=== PATIENT | male | born 1975 | race Caucasian/White ===

== ENCOUNTER 2017-04-18 14:07 | Inpatient (IN) | payer BC, OTHER ==
[~2017-04-18] VITALS: Ht 177.8 cm; Wt 72.4 kg
[~2017-04-18 14:07] MED LIST: LEVE750T PO
[2017-04-18] MEDS ORDERED: SODIUM CHLORIDE 0.9% 1000ML 1,000 ML IV SCH (14:27)
[2017-04-18 14:50] LABS: BASO % 0.3 %; BASO ABS # 0.02 K/uL (0-0.2); COMPLETE YES; EOS % 2.3 %; HEMATOCRIT 46.6 % (42-52); IG% 0.2 %; LYMPH % 21.2 %; LYMPH ABS # 1.27 K/uL (1.2-3.4); MEAN CELL VOLUME 95.9 fL (80-100); MEAN CORPUSCULAR HEMOGLOBIN 32.9 pg (25-34); MEAN CORPUSCULAR HGB CONC 34.3 g/dl (32-36); MEAN PLATELET VOLUME 9.8 fL (7.4-10.4); MONO % 12.7 %; NEUT % 63.3 %; PLATELET COUNT 207 K/uL (130-400); RED BLOOD COUNT 4.86 M/uL (4.7-6.1)
[2017-04-18 14:59] LABS: PROTHROMBIN TIME (PATIENT) 10.7 SECONDS (9.0-12.0)
[2017-04-18 15:15] LABS: BLOOD UREA NITROGEN 10 mg/dl (7-18); BUN/CREATININE RATIO 10.9 (10-20); CALCIUM 9.3 mg/dl (8.5-10.1); CARBON DIOXIDE 28 mmol/L (21-32); CHLORIDE 103 mmol/L (98-107); CREATININE 0.92 mg/dl (0.60-1.40); GLUCOSE 129 mg/dl (70-99); POTASSIUM 3.5 mmol/L (3.5-5.1); SODIUM 139 mmol/L (136-145)
--- NOTE | 2017-04-18 15:32 | DIAGNOSTIC IMAGING REPORT ---
CT OF THE HEAD WITHOUT CONTRAST CLINICAL HISTORY: Stroke. Speech problems. COMPARISON STUDY: MRI of the brain May 22, 2013. CT DOSE: 700.35 mGycm TECHNIQUE: Helical axial images of the head were obtained without IV contrast. Automated exposure control was utilized for the study. A dose lowering technique was utilized adhering to the principles of ALARA. FINDINGS: The patient is status post right temporal craniotomy. A 5.5 x 5.2 cm CSF attenuation right temporal lobe abnormality is similar to exam of May 22, 2013. This contains several thin septations. No acute intracranial hemorrhage is present. Ventricular system is stable. Basilar cisterns are patent. There are no extra-axial fluid collections. There are no findings to suggest acute dural sinus thrombosis or acute territorial infarct. There are no significant calvarial abnormalities. There may be a mucous retention cyst within the left sphenoid sinus. Mastoid air cells are clear. IMPRESSION: 1. No acute intracranial findings. 2. No significant change in the right temporal lobe cystic lesion since MRI of May 22, 2013. Electronically signed by: Shaq Pierce M.D. 04/18/2017 3:30 PM Dictated Date/Time: 04/18/2017 3:25 PM
[2017-04-18] MEDS ORDERED: ONDANSETRON INJ 2 MG/ML 2 ML VIAL IV PRN (16:45)
[2017-04-18] MEDS ORDERED: POLYETHYLENE (MIRALAX) 17 GM PACK PO PRN (16:45)
[2017-04-18] MEDS ORDERED: PHARMACIST DISCHARGE MED REC CONSULT PRN (16:45)
[2017-04-18] MEDS ORDERED: ACETAMINOPHEN 325 MG TAB PO PRN (16:45)
[2017-04-18] MEDS ORDERED: ASPIRIN 325 MG ECTAB PO STA (16:58)
[2017-04-18] MEDS ORDERED: HOME MED ADMINISTRATION ONE (17:00)
--- NOTE | 2017-04-18 17:07 | History and Physical ---
History & Physical Date & Time of Service: Apr 18, 2017 at 16:58 Chief Complaint: Speech Problems Primary Care Physician: Dolly LAGUERRE M.D. History of Present Illness Source: patient, family, clinic records, hospital records Mr. Santamaria is a 41 yo M with h/o post-op stroke in 2006 who presents today with acute dysarthria that began suddenly yesterday when he woke up in the morning. 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 He then had one seizure 8 months post-op but since that time has remained seizure-free on Keppra at current dose. He denies any recent illnesses such as colds, diarrhea or UTI symptoms. He denies any headache, fevers, chills, neck stiffness, cough, sore throat, rash, nausea, vomiting, chest pain, shortness of breath, visual changes, changes in weakness in limbs or with gait. He denies any recent stressors, changes in meds or taking any OTC meds, and denies any trauma to his brain such as an MVA in recent months. His symptoms are specific to his expression and his comprehension is intact. He also denies any difficulties with swallowing. No new numbness or tingling, no vertigo and no lightheadedness. Past Medical/Surgical History Medical Problems: (1) Left-sided weakness Status: Chronic (2) Stroke Status: Resolved Surgical Problems: (1) Brain tumor (benign) Status: Resolved Family History Patient reports no known family medical history. Social History Smoking Status: Never Smoker Smokeless Tobacco Use: No Alcohol Use: none Drug Use: none Marital Status: single Housing status: lives alone Occupational Status: employed Immunizations History of Influenza Vaccine: No History of Tetanus Vaccine?: Yes Tetanus Immunization Date: May 07, 2016 History of Pneumococcal: No History of Hepatitis B Vaccine: No Multi-Drug Resistant Organisms History of MDRO: No Allergies Coded Allergies: No Known Allergies (Unverified , 05/22/13) Home Medications Scheduled Levetiracetam (Levetiracetam Er), 4 TAB PO HS Review of Systems At least ten systems were reviewed and negative except as indicated in HPI. Physical Exam Vital Signs Date Time Temp Pulse Resp B/P (MAP) Pulse Ox O2 Delivery O2 Flow Rate FiO2 04/18/17 15:32 73 04/18/17 15:29 70 18 123/94 96 04/18/17 14:35 97 Room Air 04/18/17 14:11 36.8 84 18 139/91 97 Room Air General Appearance: WD/WN, no apparent distress Head: normocephalic, atraumatic Eyes: normal inspection, PERRL, EOMI, sclerae normal ENT: normal ENT inspection, hearing grossly normal, pharynx normal Neck: supple, no adenopathy, no JVD Respiratory/Chest: lungs clear, normal breath sounds, no respiratory distress, no accessory muscle use Cardiovascular: regular rate, rhythm, no edema, no gallop, no JVD, no murmur, normal peripheral pulses Abdomen/GI: normal bowel sounds, non tender, soft Back: normal inspection Extremities/Musculoskelatal: normal inspection, + pertinent finding (chronic unchanged, L foot drop, L hemiparalysis with contracture of L arm, 5/5 strength in left leg. ) Neurologic/Psych: honey blender II-XII nml as tested, alert, normal mood/affect, + abnormal gait (chronic without any new changes. ), + pertinent finding ( hyperreflexic in L leg knee reflex, could no elicit S1 reflex. ) Skin: normal color, warm/dry, no rash Diagnostics Laboratory Results 04/18/17 14:30 Red Blood Count 4.86, Mean Corpuscular Volume 95.9, Mean Corpuscular Hemoglobin 32.9, Mean Corpuscular Hemoglobin Concent 34.3, Mean Platelet Volume 9.8, Neutrophils (%) (Auto) 63.3, Lymphocytes (%) (Auto) 21.2, Monocytes (%) (Auto) 12.7, Eosinophils (%) (Auto) 2.3, Basophils (%) (Auto) 0.3, Neutrophils # (Auto ) 3.80, Lymphocytes # (Auto) 1.27, Monocytes # (Auto) 0.76, Eosinophils # (Auto ) 0.14, Basophils # (Auto) 0.02 04/18/17 14:30 Test 04/18/17 14:30 04/18/17 14:32 9/18/17 16:50 White Blood Count 6.00 K/uL (4.8-10.8) Red Blood Count 4.86 M/uL (4.7-6.1) Hemoglobin 16.0 g/dL (14.0-18.0) Hematocrit 46.6 % (42-52) Mean Corpuscular Volume 95.9 fL (80-100) Mean Corpuscular Hemoglobin 32.9 pg (25-34) Mean Corpuscular Hemoglobin Concent 34.3 g/dl (32-36) Platelet Count 207 K/uL (130-400) Mean Platelet Volume 9.8 fL (7.4-10.4) Neutrophils (%) (Auto) 63.3 % Lymphocytes (%) (Auto) 21.2 % Monocytes (%) (Auto) 12.7 % Eosinophils (%) (Auto) 2.3 % Basophils (%) (Auto) 0.3 % Neutrophils # (Auto) 3.80 K/uL (1.4-6.5) Lymphocytes # (Auto) 1.27 K/uL (1.2-3.4) Monocytes # (Auto) 0.76 K/uL (0.11-0.59) Eosinophils # (Auto) 0.14 K/uL (0-0.5) Basophils # (Auto) 0.02 K/uL (0-0.2) RDW Standard Deviation 44.7 fL (36.4-46.3) RDW Coefficient of Variation 12.9 % (11.5-14.5) Immature Granulocyte % (Auto) 0.2 % Immature Granulocyte # (Auto) 0.01 K/uL (0.00-0.02) Prothrombin Time 10.7 SECONDS (9.0-12.0) Prothromb Time International Ratio 1.0 (0.9-1.1) Activated Partial Thromboplast Time 25.0 SECONDS (21.0-31.0) Partial Thromboplastin Ratio 1.0 Anion Gap 8.0 mmol/L (3-11) Est Creatinine Clear Calc Drug Dose 111.3 ml/min Estimated GFR () 121.0 Estimated GFR (Non- 104.4 BUN/Creatinine Ratio 10.9 (10-20) Calcium Level 9.3 mg/dl (8.5-10.1) Troponin I < 0.015 ng/ml (0-0.045) Bedside Glucose 125 mg/dl (70-99) Results Past 24 Hours Test 04/18/17 14:30 04/18/17 14:32 04/18/17 16:35 04/18/17 16:50 Range/Units White Blood Count 6.00 4.8-10.8 K/uL Red Blood Count 4.86 4.7-6.1 M/uL Hemoglobin 16.0 14.0-18.0 g/dL Hematocrit 46.6 42-52 % Mean Corpuscular Volume 95.9 80-100 fL Mean Corpuscular Hemoglobin 32.9 25-34 pg Mean Corpuscular Hemoglobin Concent 34.3 32-36 g/dl Platelet Count 207 130-400 K/uL Mean Platelet Volume 9.8 7.4-10.4 fL Neutrophils (%) (Auto) 63.3 % Lymphocytes (%) (Auto) 21.2 % Monocytes (%) (Auto) 12.7 % Eosinophils (%) (Auto) 2.3 % Basophils (%) (Auto) 0.3 % Neutrophils # (Auto) 3.80 1.4-6.5 K/uL Lymphocytes # (Auto) 1.27 1.2-3.4 K/uL Monocytes # (Auto) 0.76 0.11-0.59 K/uL Eosinophils # (Auto) 0.14 0-0.5 K/uL Basophils # (Auto) 0.02 0-0.2 K/uL RDW Standard Deviation 44.7 36.4-46.3 fL RDW Coefficient of Variation 12.9 11.5-14.5 % Immature Granulocyte % (Auto) 0.2 % Immature Granulocyte # (Auto) 0.01 0.00-0.02 K/uL Prothrombin Time 10.7 9.0-12.0 SECONDS Prothromb Time International Ratio 1.0 0.9-1.1 Activated Partial Thromboplast Time 25.0 21.0-31.0 SECONDS Partial Thromboplastin Ratio 1.0 Sodium Level 139 136-145 mmol/L Potassium Level 3.5 3.5-5.1 mmol/L Chloride Level 103 98-107 mmol/L Carbon Dioxide Level 28 21-32 mmol/L Anion Gap 8.0 3-11 mmol/L Blood Urea Nitrogen 10 7-18 mg/dl Creatinine 0.92 0.60-1.40 mg/dl Est Creatinine Clear Calc Drug Dose 111.3 ml/min Estimated GFR () 121.0 Estimated GFR (Non- 104.4 BUN/Creatinine Ratio 10.9 10-20 Random Glucose 129 70-99 mg/dl Calcium Level 9.3 8.5-10.1 mg/dl Troponin I < 0.015 0-0.045 ng/ml Bedside Glucose 125 70-99 mg/dl Diagnostic Radiology CT OF THE HEAD WITHOUT CONTRAST CLINICAL HISTORY: Stroke. Speech problems. COMPARISON STUDY: MRI of the brain May 22, 2013. CT DOSE: 700.35 mGycm TECHNIQUE: Helical axial images of the head were obtained without IV contrast. Automated exposure control was utilized for the study. A dose lowering technique was utilized adhering to the principles of ALARA. FINDINGS: The patient is status post right temporal craniotomy. A 5.5 x 5.2 cm CSF attenuation right temporal lobe abnormality is similar to exam of May 22, 2013. This contains several thin septations. No acute intracranial hemorrhage is present. Ventricular system is stable. Basilar cisterns are patent. There are no extra-axial fluid collections. There are no findings to suggest acute dural sinus thrombosis or acute territorial infarct. There are no significant calvarial abnormalities. There may be a mucous retention cyst within the left sphenoid sinus. Mastoid air cells are clear. IMPRESSION: 1. No acute intracranial findings. 2. No significant change in the right temporal lobe cystic lesion since MRI of May 22, 2013. Normal EKG Impression Assessment and Plan 41 yo M with acute onset dysarthria after waking up yesterday morning, has not resolved. Admitted for acute stroke workup. 1. Stroke-acute neuro deficit. Has h/o hemorrhagic stroke post-op in 2005 with subsequent L sided deficits as above. CT head was negative. Preliminary reading on the MRI shows poss R cerebellar stroke. Pt was given ASA and statin earlier this evening and will continue. Discussed the case with Neurology who agrees with plan. TTE with bubble study in am. Will likely need hypercoagulable workup because of age and low risk factors, however, will defer this to Neuro after evaluation. Cont telemetry monitoring overnight. 2. Seizure disorder-has remained seizure free since 2005. Cont Keppra. Level was ordered. DVT proph-Lovenox Full Code Dispo-uncertain at this time. [facility] Prophylaxis Given or contraindicated: Enoxaparin (Lovenox)SQ
[2017-04-18 18:59] VITALS: BP 132/86; PULSE 79; TEMP 37; O2SAT 96; Ht 177.8 cm; Wt 72.4 kg
--- NOTE | 2017-04-18 19:25 | EMERGENCY ROOM VISIT NOTE ---
History Report prepared by Nicole: Mike Soto Under the Supervision of: Dr. Nino Valladares M.D. First contact with patient: 14:18 Chief Complaint: STROKE SYMPTOMS Stated Complaint: SPEECH PROBLEMS History of Present Illness The patient is a 41 year old male who presents to the Emergency Room with complaints of speech trouble that began yesterday morning, 27 hours ago. The patient woke up yesterday at 0800 and felt slightly lightheaded. He went back to sleep, waking up 3 hours later. He then noticed that he began to have trouble articulating his words without slurring. He knows the words he wants to say and what people are saying to him, but he stumbles with over 5 or 6 words at a time. Per the patient's mother, this is abnormal for him and has never happened before. Ten years ago, the patient had a right sided benign brain tumor removed which resulted in a stoke that caused chronic left sided weakness. He denies any changes to his weakness, vision, or any numbness. He denies any current vertigo, dizziness, or trouble swallowing. He also denies any fever, headache, chest pain, shortness of breath, or abdominal pain. Source of History: patient Onset: 27 hours ago Position: other (Speech) Symptom Intensity: moderate Quality: other (Speech Trouble) Timing: constant Associated Symptoms: No fevers, No headache, No chest pain, No SOB, No abdominal pain, No weakness (No changes to his weakness), No numbness Note: He was lightheaded yesterday morning but is not currently. Review of Systems See HPI for pertinent positives & negatives. A total of 10 systems reviewed and were otherwise negative. Past Medical & Surgical Medical Problems: (1) Left-sided weakness (2) Stroke (3) Stroke Surgical Problems: (1) Brain tumor (benign) Family History Patient reports no known family medical history. Social History Smoking Status: Never Smoker Smokeless Tobacco Use: No Drug Use: none Housing Status: lives with family Occupation Status: employed Current/Historical Medications Scheduled Levetiracetam (Levetiracetam Er), 4 TAB PO HS Allergies Coded Allergies: No Known Allergies (Unverified , 05/22/13) Physical Exam Vital Signs Date Time Temp Pulse Resp B/P (MAP) Pulse Ox O2 Delivery O2 Flow Rate FiO2 04/18/17 15:32 73 04/18/17 15:29 70 18 123/94 96 04/18/17 14:35 97 Room Air 04/18/17 14:11 36.8 84 18 139/91 97 Room Air Physical Exam Constitutional: Vital signs reviewed. Eyes: Pupils are equal round reactive to light. Conjunctiva are noninjected. ENT: Pharynx is clear without erythema or exudate. Mucous membranes are moist. Neck supple without meningeal signs. Respiratory: Clear to auscultation bilaterally. Breath sounds are equal bilaterally. Cardiovascular: Regular rate and rhythm. No rubs or gallops. GI: Soft, nondistended and nontender. Bowel sounds are present. Musculoskeletal: No peripheral edema. Integumentary: No cyanosis. Neurological: The patient is awake and alert. Cranial nerves II-XII are intact , except for a mild left sided facial droop. 4/5 strength with contractures to the left arm. 5/5 strength in the right arm and lower extremities, with footdrop left leg. Sensation is intact to light touch all extremities. Slurred speech. Left pronator drift. Psychiatric: Normal affect. Medical Decision & Procedures ER Provider Diagnostic Interpretation: Radiology results as stated below per my review and the radiologist's interpretation: CT OF THE HEAD WITHOUT CONTRAST CLINICAL HISTORY: Stroke. Speech problems. COMPARISON STUDY: MRI of the brain May 22, 2013. CT DOSE: 700.35 mGycm TECHNIQUE: Helical axial images of the head were obtained without IV contrast. Automated exposure control was utilized for the study. A dose lowering technique was utilized adhering to the principles of ALARA. FINDINGS: The patient is status post right temporal craniotomy. A 5.5 x 5.2 cm CSF attenuation right temporal lobe abnormality is similar to exam of May 22, 2013. This contains several thin septations. No acute intracranial hemorrhage is present. Ventricular system is stable. Basilar cisterns are patent. There are no extra-axial fluid collections. There are no findings to suggest acute dural sinus thrombosis or acute territorial infarct. There are no significant calvarial abnormalities. There may be a mucous retention cyst within the left sphenoid sinus. Mastoid air cells are clear. IMPRESSION: 1. No acute intracranial findings. 2. No significant change in the right temporal lobe cystic lesion since MRI of May 22, 2013. Electronically signed by: Shaq Pierce M.D. 04/18/2017 3:30 PM Dictated Date/Time: 04/18/2017 3:25 PM Laboratory Results 04/18/17 14:30 Red Blood Count 4.86, Mean Corpuscular Volume 95.9, Mean Corpuscular Hemoglobin 32.9, Mean Corpuscular Hemoglobin Concent 34.3, Mean Platelet Volume 9.8, Neutrophils (%) (Auto) 63.3, Lymphocytes (%) (Auto) 21.2, Monocytes (%) (Auto) 12.7, Eosinophils (%) (Auto) 2.3, Basophils (%) (Auto) 0.3, Neutrophils # (Auto ) 3.80, Lymphocytes # (Auto) 1.27, Monocytes # (Auto) 0.76, Eosinophils # (Auto ) 0.14, Basophils # (Auto) 0.02 04/18/17 14:30 Test 04/18/17 14:30 04/18/17 14:32 White Blood Count 6.00 K/uL (4.8-10.8) Red Blood Count 4.86 M/uL (4.7-6.1) Hemoglobin 16.0 g/dL (14.0-18.0) Hematocrit 46.6 % (42-52) Mean Corpuscular Volume 95.9 fL (80-100) Mean Corpuscular Hemoglobin 32.9 pg (25-34) Mean Corpuscular Hemoglobin Concent 34.3 g/dl (32-36) Platelet Count 207 K/uL (130-400) Mean Platelet Volume 9.8 fL (7.4-10.4) Neutrophils (%) (Auto) 63.3 % Lymphocytes (%) (Auto) 21.2 % Monocytes (%) (Auto) 12.7 % Eosinophils (%) (Auto) 2.3 % Basophils (%) (Auto) 0.3 % Neutrophils # (Auto) 3.80 K/uL (1.4-6.5) Lymphocytes # (Auto) 1.27 K/uL (1.2-3.4) Monocytes # (Auto) 0.76 K/uL (0.11-0.59) Eosinophils # (Auto) 0.14 K/uL (0-0.5) Basophils # (Auto) 0.02 K/uL (0-0.2) RDW Standard Deviation 44.7 fL (36.4-46.3) RDW Coefficient of Variation 12.9 % (11.5-14.5) Immature Granulocyte % (Auto) 0.2 % Immature Granulocyte # (Auto) 0.01 K/uL (0.00-0.02) Prothrombin Time 10.7 SECONDS (9.0-12.0) Prothromb Time International Ratio 1.0 (0.9-1.1) Activated Partial Thromboplast Time 25.0 SECONDS (21.0-31.0) Partial Thromboplastin Ratio 1.0 Anion Gap 8.0 mmol/L (3-11) Est Creatinine Clear Calc Drug Dose 111.3 ml/min Estimated GFR () 121.0 Estimated GFR (Non- 104.4 BUN/Creatinine Ratio 10.9 (10-20) Calcium Level 9.3 mg/dl (8.5-10.1) Troponin I < 0.015 ng/ml (0-0.045) Bedside Glucose 125 mg/dl (70-99) Laboratory results as reviewed by me. Medications Administered Medications (Trade) Dose Ordered Sig/Foreign Route Start Time Stop Time Status Last Admin Dose Admin Sodium Chloride 1,000 ml @ 50 mls/hr Q20H IV 04/18/17 14:27 04/18/17 16:58 DC 04/18/17 15:29 50 MLS/HR Aspirin (Ecotrin Tab) 325 mg NOW STAT PO 04/18/17 16:58 04/18/17 16:59 DC 04/18/17 17:01 325 MG ECG Indication: other (Stroke Symptoms) Rate (beats per minute): 80 Rhythm: normal sinus Findings: no acute ischemic change, no ectopy ED Course 1418: The patient was evaluated in room B7. A complete history and physical exam was performed. 1427: Sodium Chloride 1000 ml @ 50 mls/hr IV 1554: After reevaluation, the patient has persistent dysarthria. We discussed his test results. I will be calling a [facility] Hospitalist. 1604: [facility] discussed the patient's case. She will be evaluating the patient for further management and care. Medical Decision This is a 41-year-old male who presents with dysarthria. Differential diagnosis includes CVA, TIA, metabolic derangement, intracranial hemorrhage, intracranial mass. I did perform a limited focused review of portions of the patient's old chart on the electronic medical record. The patient received a MRI of his brain in 2012 which showed a right temporal lobe cystic lesion. I did evaluate the patient as noted above. The patient has a history of prior stroke after a tumor removal. He is presenting with dysarthria starting yesterday. According to his mother's seems to be worsening today. He is otherwise neurologically intact other than his chronic deficits. IV access was established. The patient was placed on a continuous stakes player. I did order and personally review the patient's 12-lead EKG as described above. I did order and review the patient's blood work as noted in the electronic medical record. I did order a CT of the head. I did review the images myself as well as the radiology report as described above. There is no evidence of acute intracranial process. I did reassess the patient. He has persistent dysarthria. At this time I did recommend hospitalization for further workup of his symptoms including MRI of the brain. I did discuss case with the hospitalist and block and case maker. Medication Reconcilliation Current Medication List: was personally reviewed by me Blood Pressure Screening Patient's blood pressure: Elevated blood pressure Blood pressure disposition: Referred to PCP Consults Time Called: 1600 Consulting Physician: Sandra IBANEZ - [facility] Returned Call: 1604 I [facility] We discussed the patient and his results. The patient will be further evaluated by her. Impression Primary Impression: Dysarthria Scribe Attestation The scribe's documentation has been prepared under my direct and personally reviewed by me in its entirety. I confirm that the note above accurately reflects all work, treatment, procedures, and medical decision making performed by me. Stroke History Time Last Known Well 27 hours ago Stroke t-PA Criteria Reviewed Does NOT meet criteria for t-PA Reason t-PA Not Given Contraindicated (Due to time frame) Departure Information Dispostion Being Evaluated By Hospitalist Patient Instructions My [facility]
[2017-04-18] MEDS ORDERED: LEVETIRACETAM PO SCH (21:00)
[2017-04-18] MEDS: ATORVASTATIN 40 MG TAB PO SCH (21:43)
[2017-04-18] MEDS ORDERED: GADAVIST IV PRN (23:30)
[2017-04-19] VITALS (9 sets, daily range): BP systolic 97–133; BP diastolic 62–93; PULSE 49–67; TEMP 36.6–36.9; O2SAT 92–98
[2017-04-19 06:06] LABS: ESTIMATED AVERAGE GLUCOSE 97 mg/dl; HA1C FLAG Normal (Normal)
[2017-04-19 06:11] LABS: BASO % 0.5 %; BASO ABS # 0.03 K/uL (0-0.2); COMPLETE YES; HEMATOCRIT 46.3 % (42-52); IG% 0.2 %; LYMPH % 22.9 %; LYMPH ABS # 1.27 K/uL (1.2-3.4); MEAN CELL VOLUME 96.5 fL (80-100); MEAN CORPUSCULAR HEMOGLOBIN 31.3 pg (25-34); MEAN CORPUSCULAR HGB CONC 32.4 g/dl (32-36); MEAN PLATELET VOLUME 9.6 fL (7.4-10.4); MONO % 16.2 %; NEUT % 56.2 %; PLATELET COUNT 190 K/uL (130-400); WHITE BLOOD COUNT 5.54 K/uL (4.8-10.8)
[2017-04-19 06:44] LABS: BUN/CREATININE RATIO 12.3 (10-20); CALCIUM 8.7 mg/dl (8.5-10.1); CREATININE 0.88 mg/dl (0.60-1.40); POTASSIUM 3.7 mmol/L (3.5-5.1)
[2017-04-19 06:48] LABS: CHOLESTEROL/HDL RATIO 2.6
--- NOTE | 2017-04-19 06:58 | DIAGNOSTIC IMAGING REPORT ---
MRI OF THE BRAIN WITHOUT AND WITH IV CONTRAST CLINICAL HISTORY: Stroke. New onset dysarthria. History of 2012 craniotomy. COMPARISON STUDY: MRI the brain dated 05/22/2013 TECHNIQUE: MRI of the brain was performed from the vertex to the skull base utilizing various T1 and T2 weighted sequences. Following the IV administration of 7 mL of Gadavist contrast, additional enhanced images were obtained. FINDINGS: Sagittal T1, axial diffusion, proton density and T2 weighted axial, coronal FLAIR, and pre and post axial T1-weighted images were acquired. These were supplemented with post gadolinium coronal T1 weighted images. There is a persistent 6 cm cystic lesion within the right temporal lobe containing a few inferior septations. This demonstrates no pathologic enhancement. There is persistent mild mass effect on the thalamus. There are small foci of restricted water diffusion within the right cerebellar hemisphere consistent with areas of acute/subacute infarction. There is no evidence of ventricular dilatation. Proton density T2-weighted and FLAIR images reveal no significant intraparenchymal signal abnormalities with the exception of minor right periventricular edema. There are no abnormal flow voids. There is no evidence of pathologic enhancement. IMPRESSION: 1. Small foci of restricted water diffusion within the right cerebellar hemisphere, consistent with acute/subacute infarction 2. Stable 6 cm cystic lesion within the right temporal lobe containing a few inferior septations. There is no pathologic enhancement. There is stable mild adjacent T2 and FLAIR hyperintensity. Electronically signed by: Howard Ibarra M.D. 04/19/2017 6:56 AM Dictated Date/Time: 04/19/2017 6:51 AM
--- NOTE | 2017-04-19 07:20 | DIAGNOSTIC IMAGING REPORT ---
MR ANGIOGRAPHY OF THE [place] NO CONTRAST CLINICAL HISTORY: Stroke - Attention to [place] COMPARISON STUDY: None. A 3-D [id number] MR angiographic sequence of the [place] was performed. Both the source and projection images were reviewed. There is no evidence of major intracranial branch occlusion. There is no evidence of intracranial stenosis. There are no lesions suspicious for aneurysm. There is a right temporal lobe cystic lesion. This was described on the prior MRI the brain. The right anterior inferior cerebellar artery is not visualized. The left posterior inferior cerebellar artery is not visualized. IMPRESSION: Possible vertebrobasilar anatomic variants. Otherwise unremarkable MR angiography of the [place]. Electronically signed by: Howard Ibarra M.D. 04/19/2017 7:18 AM Dictated Date/Time: 04/19/2017 7:11 AM
--- NOTE | 2017-04-19 07:32 | DIAGNOSTIC IMAGING REPORT ---
MRA OF THE NECK WITH AND WITHOUT CONTRAST CLINICAL HISTORY: Stroke COMPARISON STUDY: None. TECHNIQUE: Unenhanced and contrast-enhanced MRA of the neck was performed. Injection of 7 mL of Gadavist IV was uneventful. NASCET criteria were utilized to estimate the degree of carotid stenosis. FINDINGS: The bilateral common carotid and internal carotid arteries are patent. There is no hemodynamically significant stenosis within these 2 vessels. There is no evidence for dissection within these vessels. The midportion of the left vertebral artery is diminutive and irregular. Multifocal stenoses are present within this vessel. The origin of the left vertebral artery is patent. The distal left vertebral artery is normal in appearance. The right vertebral artery is normal. IMPRESSION: 1. No stenosis within the bilateral common carotid and internal carotid arteries. 2. Irregular, diminutive midportion of the left vertebral artery with multifocal severe stenoses. The chronicity and etiology for this finding is uncertain on this exam. Electronically signed by: Shaq Pierce M.D. 04/19/2017 7:31 AM Dictated Date/Time: 04/19/2017 7:17 AM
[2017-04-19] MEDS ORDERED: ENOXAPARIN 40 MG/0.4 ML SYR SC SCH (09:00)
[2017-04-19] MEDS: KEPPRA PO SCH (09:18)
[2017-04-19] MEDS: ASPIRIN 81 MG ECTAB PO SCH (09:21)
[2017-04-19] MEDS ORDERED: OPTIRAY 320 IV PRN (11:15)
[2017-04-19 12:46] LABS: BASO % 0.6 %; BASO ABS # 0.03 K/uL (0-0.2); COMPLETE YES; EOS % 2.2 %; HEMATOCRIT 45.7 % (42-52); IG% 0.2 %; LYMPH ABS # 0.98 K/uL (1.2-3.4); MEAN CELL VOLUME 95.2 fL (80-100); MEAN CORPUSCULAR HEMOGLOBIN 33.8 pg (25-34); MEAN CORPUSCULAR HGB CONC 35.4 g/dl (32-36); MEAN PLATELET VOLUME 9.9 fL (7.4-10.4); MONO % 12.1 %; NEUT % 66.9 %; PLATELET COUNT 207 K/uL (130-400); WHITE BLOOD COUNT 5.45 K/uL (4.8-10.8)
[2017-04-19 13:09] LABS: CREATININE 0.92 mg/dl (0.60-1.40); POTASSIUM 3.9 mmol/L (3.5-5.1)
[2017-04-19 13:11] LABS: ALB/GLOB RATIO 1.1 (0.9-2)
--- NOTE | 2017-04-19 13:31 | ECHOCARDIOGRAM REPORT ---
*NOTICE TO RECEIVING CONSTITUTION PARTY AGENCY This information is strictly Confidential and protected under [place] law. [place] law prohibits you from making any further disclosure of this information unless further disclosure is expressly permitted by the written consent of the person to whom it pertains or is authorized by law. A general authorization for the release of medical or other information is not sufficient for this purpose. Hospital accepts no responsibility if the information is made available to any other person, INCLUDING THE PATIENT. Interpretation Summary * Name: ROQUE BRUCE Study Date: 04/19/2017 06:39 AM BP: 97/62 mmHg * Patient Location: C.2T\S\S235\S\1 HR: 49 * : 1975 (M/d/yyyy) Gender: Male Height: 70 in * Age: 41 yrs Ethnicity: CA Weight: 162 lb * Ordering Physician: Serena Cerda * Referring Physician: Self, Referred * Performed By: Bekah Gudino RDCS * * Reason For Study: CEREBRAL ISCHEMIA/EMBOLUS * BSA: 1.9 m2 * -- Conclusions -- * There is normal left ventricular wall thickness. * The left ventricular wall motion is normal. * The LV Ejection Fraction = 55-60%. * The LV diastolic function is normal. * There is no significant valvular heart disease. Procedure Details * A saline contrast injection was performed to assess for cardiac shunting. * The injection was performed through an intravenous line in the right arm. * The attending nurse who injected the saline contrast was CANDELARIA HOBBS RN. * A total of 20 cc of agitated saline was given. * A contrast injection of Definity was performed to improve assessment of LV function. * Contrast was injected into an intravenous site in the right arm. * One vial of Definity ultrasound contrast was diluted in normal saline to a total volume of 10 ml. A total of '2]' ml of solution was administered during imaging. * Lot # [id number] of Definity utilized for procedure. * Expiration date MAY 18. * The attending nurse who injected the contrast agent was CANDELARIA HOBBS RN. * A complete two-dimensional transthoracic echocardiogram was performed (2D, M-mode, Doppler and color flow Doppler). Left Ventricle * The left ventricle is normal in size. * There is normal left ventricular wall thickness. * Ejection Fraction = 55-60%. * Left ventricular systolic function is normal. * The left ventricular wall motion is normal. Right Ventricle * The right ventricle is normal size. * The right ventricular systolic function is normal as assessed by tricuspid annular plane systolic excursion (TAPSE) (normal >1.5 cm). Atria * The left atrial size is normal. * Right atrial size is normal. * The interatrial septum is intact with no evidence for an atrial septal defect. Mitral Valve * The mitral valve is normal. * There is no mitral valve stenosis. * Significant mitral regurgitation is absent. Tricuspid Valve * The tricuspid valve is normal. * There is no tricuspid stenosis. * Significant tricuspid regurgitation is absent. Aortic Valve * The aortic valve is trileaflet. * Aortic stenosis is absent. * There is no significant aortic regurgitation. Pulmonic Valve * The pulmonary valve is not well seen, but the Doppler examination is normal without significant regurgitation or stenosis. Great Vessels * The aortic root and proximal ascending aorta are normal sized. Pericardium/Pleural * There is no pericardial effusion. Great Vessels * Normal inferior vena cava diameter and respiratory variation suggests normal central venous pressure. Left Ventricular Diastolic Function * The LV diastolic function is normal. MMode 2D Measurements and Calculations IVSd 0.93 cm IVSs 1.5 cm LVIDd 4.6 cm LVIDs 3.1 cm LVPWd 0.80 cm LVPWs 1.3 cm IVS/LVPW 1.2 FS 32.1 % EDV(Teich) 98.8 ml ESV(Teich) 39.2 ml EF(Teich) 60.3 % EDV(cubed) 99.2 ml ESV(cubed) 31.1 ml EF(cubed) 68.7 % % IVS thick 61.2 % % LVPW thick 66.2 % LV mass(C)d 132.2 grams LV mass(C)dI 69.2 grams/m\S\2 LV mass(C)s 152.2 grams LV mass(C)sI 79.8 grams/m\S\2 SV(Teich) 59.5 ml SI(Teich) 31.2 ml/m\S\2 SV(cubed) 68.1 ml SI(cubed) 35.7 ml/m\S\2 Ao root diam 3.9 cm Ao root area 11.9 cm\S\2 LA dimension 3.0 cm LA/Ao 0.77 LVAd ap4 32.7 cm\S\2 LVLd ap4 8.6 cm EDV(MOD-sp4) 97.6 ml EDV(sp4-el) 105.1 ml LVAs ap4 20.5 cm\S\2 LVLs ap4 7.6 cm ESV(MOD-sp4) 44.3 ml ESV(sp4-el) 46.6 ml EF(MOD-sp4) 54.6 % EF(sp4-el) 55.7 % LVAd ap2 28.7 cm\S\2 LVLd ap2 8.1 cm EDV(MOD-sp2) 81.6 ml EDV(sp2-el) 85.7 ml LVAs ap2 17.1 cm\S\2 LVLs ap2 6.9 cm ESV(MOD-sp2) 34.8 ml ESV(sp2-el) 36.1 ml EF(MOD-sp2) 57.3 % EF(sp2-el) 57.9 % LVLd %diff -5.99 % EDV(MOD-bp) 92.2 ml LVLs %diff -10.36 % ESV(MOD-bp) 41.7 ml EF(MOD-bp) 54.7 % SV(MOD-sp4) 53.2 ml SI(MOD-sp4) 27.9 ml/m\S\2 SV(MOD-sp2) 46.8 ml SI(MOD-sp2) 24.5 ml/m\S\2 SV(MOD-bp) 50.4 ml SI(MOD-bp) 26.4 ml/m\S\2 SV(sp4-el) 58.5 ml SI(sp4-el) 30.7 ml/m\S\2 SV(sp2-el) 49.6 ml SI(sp2-el) 26.0 ml/m\S\2 Doppler Measurements and Calculations MV E max osman 67.2 cm/sec MV A max osman 50.6 cm/sec MV E/A 1.3 MV dec time 0.23 sec Ao V2 max 100.9 cm/sec Ao max PG 4.1 mmHg Ao max PG (full) 2.2 mmHg LV V1 max PG 1.8 mmHg LV V1 max 67.6 cm/sec
--- NOTE | 2017-04-19 13:56 | DIAGNOSTIC IMAGING REPORT ---
NECK ANGIO WITH CONTRAST CLINICAL HISTORY: 41 years-old Male presenting with PER ARG DO WITH. TECHNIQUE: Multidetector CT angiography of the neck was performed after the administration of intravenous contrast. 3-D volumetric and/or maximum intensity projection (MIP) images were subsequently reconstructed for review. IV contrast: 120 mL of Optiray 320. A dose lowering technique was used consistent with the principles of ALARA (as low as reasonably achievable). Stenosis measurements were based on NASCET-like criteria. COMPARISON: MRA neck from 04/18/2017. CT DOSE (mGy.cm): The estimated cumulative dose is 459.21 mGy.cm. FINDINGS: Weigh Boss topogram: Unremarkable. Three-vessel aortic arch. Patent origins of the major branch vessels. Bilateral common and internal carotid arteries patent throughout their cervical courses. Origins of the bilateral vertebral arteries patent. As seen on MR, irregular narrowing of the left vertebral artery proximal to its course within the foramen transversarium. Irregularity extends to the C3-4 level. 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 Distal portions of the left vertebral artery patent and normal in caliber. Limited intracranial evaluation demonstrates patent vasculature. Large cystic defect in the right temporal lobe with postsurgical changes of right pterional craniotomy. 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 This is unchanged in extent. Distal left vertebral artery patent. Electronically signed by: Constantine Meraz M.D. 04/19/2017 1:54 PM Dictated Date/Time: 04/19/2017 1:49 PM
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
[2017-04-19 16:24] LABS: PARTIAL THROMBOPLASTIN RATIO 1.1
[2017-04-19] MEDS: HEPARIN 25,000 UNIT/500ML D5W 500 ML IV PRN (17:29)
--- NOTE | 2017-04-19 19:05 | Progress Note ---
Medicine Progress Note Date & Time of Visit: Apr 19, 2017 at 18:35. Subjective Pt was seen and examined Lying in bed with no distress with mother at bedside Pt said that he feels his speech seems to improve compare to Tuesday night Denies any chest pain, palpitation, dizziness and SOB Objective Last 8 Hrs Date Time Temp Pulse Resp B/P (MAP) Pulse Ox O2 Delivery O2 Flow Rate FiO2 04/19/17 16:00 Room Air 04/19/17 15:47 96 Room Air 04/19/17 15:40 36.9 64 16 120/78 (92) 96 Room Air 04/19/17 12:00 Room Air 04/19/17 11:14 36.7 67 14 128/86 (100) 98 Room Air Physical Exam: General- No acute distress Head- atraumatic Eyes- PERRL, EOMI ENT- oropharynx clear Neck- supple, no JVD Lungs- clear to auscultation Heart- regular rhythm, No murmur Abdomen- normal bowel sounds, soft Extremities- no calf tenderness Neuro- alert, oriented x 3; PERRL, EOMI; slight speech dysarthria, decrease strength in the left side Skin- warm & dry Laboratory Results: Last 24 Hours Test 04/18/17 19:11 04/19/17 05:52 04/19/17 12:15 04/19/17 16:01 White Blood Count 5.54 K/uL 5.45 K/uL Red Blood Count 4.80 M/uL 4.80 M/uL Hemoglobin 15.0 g/dL 16.2 g/dL Hematocrit 46.3 % 45.7 % Mean Corpuscular Volume 96.5 fL 95.2 fL Mean Corpuscular Hemoglobin 31.3 pg 33.8 pg Mean Corpuscular Hemoglobin Concent 32.4 g/dl 35.4 g/dl Platelet Count 190 K/uL 207 K/uL Mean Platelet Volume 9.6 fL 9.9 fL Neutrophils (%) (Auto) 56.2 % 66.9 % Lymphocytes (%) (Auto) 22.9 % 18.0 % Monocytes (%) (Auto) 16.2 % 12.1 % Eosinophils (%) (Auto) 4.0 % 2.2 % Basophils (%) (Auto) 0.5 % 0.6 % Neutrophils # (Auto) 3.11 K/uL 3.65 K/uL Lymphocytes # (Auto) 1.27 K/uL 0.98 K/uL Monocytes # (Auto) 0.90 K/uL 0.66 K/uL Eosinophils # (Auto) 0.22 K/uL 0.12 K/uL Basophils # (Auto) 0.03 K/uL 0.03 K/uL RDW Standard Deviation 44.7 fL 44.2 fL RDW Coefficient of Variation 12.8 % 12.7 % Immature Granulocyte % (Auto) 0.2 % 0.2 % Immature Granulocyte # (Auto) 0.01 K/uL 0.01 K/uL Sodium Level 142 mmol/L 139 mmol/L Potassium Level 3.7 mmol/L 3.9 mmol/L Chloride Level 106 mmol/L 105 mmol/L Carbon Dioxide Level 29 mmol/L 29 mmol/L Anion Gap 7.0 mmol/L 5.0 mmol/L Blood Urea Nitrogen 11 mg/dl 11 mg/dl Creatinine 0.88 mg/dl 0.92 mg/dl Est Creatinine Clear Calc Drug Dose 112.4 ml/min 107.5 ml/min Estimated GFR () 125.4 121.0 Estimated GFR (Non- 108.2 104.4 BUN/Creatinine Ratio 12.3 12.0 Random Glucose 98 mg/dl 119 mg/dl Calcium Level 8.7 mg/dl 9.0 mg/dl Triglycerides Level 145 mg/dl Cholesterol Level 234 mg/dl HDL Cholesterol 91 mg/dl LDL Cholesterol, Calculated 114 mg/dl VLDL Cholesterol, Calculated 29 mg/dl Cholesterol/HDL Ratio 2.6 Total Bilirubin 0.6 mg/dl Aspartate Amino Transf (AST/SGOT) 37 U/L Alanine Aminotransferase (ALT/SGPT) 50 U/L Alkaline Phosphatase 64 U/L Total Protein 7.6 gm/dl Albumin 4.0 gm/dl Globulin 3.6 gm/dl Albumin/Globulin Ratio 1.1 Prothrombin Time 11.0 SECONDS Prothromb Time International Ratio 1.0 Activated Partial Thromboplast Time 27.9 SECONDS Partial Thromboplastin Ratio 1.1 Assessment & Plan Acute/ Subacute right cerebellar hemisphere infarct Present right dysarthria since Tuesday night CT head negative for acute finding MRI showed small foci of restricted water diffusion within the right cerebellar hemisphere, consistent with acute/subacute infarction On aspirin and statin MRA of neck showed Irregular, diminutive midportion of the left vertebral artery with multifocal severe stenoses. CTA neck showed Irregularity extends to the C3-4 level. 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 Case discussed with neurology recommended to start heparin drip and coumadin with INR goal btw 2 to 2.5 Hypercoagulable work up pending Continue statin and aspirin Continue PT/OT Repeat CTA in three months and if recanalized then switch to asa only ECHO done showed * There is normal left ventricular wall thickness. * The left ventricular wall motion is normal. * The LV Ejection Fraction = 55-60%. * The LV diastolic function is normal. * There is no significant valvular heart disease. Seizure disorder No seizure activity since 2005. Cont Keppra. DVT proph on heparin drip Code status Full Code Disposition Continue monitor in telemetry Consultants: Neuro Current Inpatient Medications: Current Inpatient Medications Medications (Trade) Dose Ordered Sig/Foreign Route Start Time Stop Time Status Last Admin Dose Admin Atorvastatin Calcium (Lipitor Tab) 80 mg HS PO 04/18/17 21:00 05/18/17 20:59 04/18/17 21:43 80 MG Aspirin (Ecotrin Tab) 81 mg QAM PO 04/19/17 09:00 05/19/17 08:59 04/19/17 09:21 81 MG Miscellaneous Information (Pharmacist Discharge Med Rec Consult) 1 ea UD PRN N/A 04/18/17 16:45 05/18/17 16:44 Acetaminophen (Tylenol Tab) 650 mg Q4H PRN PO 04/18/17 16:45 05/18/17 16:44 Ondansetron HCl (Zofran Inj) 4 mg Q6H PRN IV 04/18/17 16:45 05/18/17 16:44 Polyethylene (Miralax Powder Packet) 17 gm DAILY PRN PO 04/18/17 16:45 05/18/17 16:44 Gadobutrol (Gadavist) 7 mmol UD PRN IV 04/18/17 23:30 04/22/17 23:29 Non-Formulary Medication 4 ea QAM PO 04/19/17 09:00 05/19/17 08:59 04/19/17 09:18 4 EA Ioversol (Optiray 320) 125 ml UD PRN IV 04/19/17 11:15 04/23/17 11:14 Heparin Sodium/ Dextrose 500 ml @ 25 mls/hr Q20H PRN IV 04/19/17 16:00 05/19/17 15:59 04/19/17 17:29 25 MLS/HR
[2017-04-19] MEDS: ATORVASTATIN 40 MG TAB PO SCH (20:05)
[2017-04-19 23:36] LABS: PARTIAL THROMBOPLASTIN RATIO 1.6
[2017-04-20] MEDS ORDERED: HEPARIN IV BOLUS 3,000 UNIT in SYRINGE 0 ML IV STA (00:02)
[2017-04-20] MEDS: HEPARIN 25,000 UNIT/500ML D5W 500 ML IV PRN ×4 (00:37→14:18)
[2017-04-20 04:00] VITALS: BP 111/69; PULSE 57; TEMP 36.6; O2SAT 98
[2017-04-20 06:07] LABS: BASO % 0.7 %; BASO ABS # 0.04 K/uL (0-0.2); COMPLETE YES; EOS % 4.2 %; HEMATOCRIT 45.3 % (42-52); IG% 0.2 %; LYMPH % 25.7 %; LYMPH ABS # 1.46 K/uL (1.2-3.4); MEAN CELL VOLUME 94.4 fL (80-100); MEAN CORPUSCULAR HEMOGLOBIN 33.1 pg (25-34); MEAN CORPUSCULAR HGB CONC 35.1 g/dl (32-36); MEAN PLATELET VOLUME 9.8 fL (7.4-10.4); MONO % 16.8 %; NEUT % 52.4 %; PLATELET COUNT 181 K/uL (130-400); WHITE BLOOD COUNT 5.67 K/uL (4.8-10.8)
[2017-04-20 06:37] LABS: BUN/CREATININE RATIO 16.4 (10-20); CREATININE 0.85 mg/dl (0.60-1.40); PARTIAL THROMBOPLASTIN RATIO 5.7; POTASSIUM 3.8 mmol/L (3.5-5.1)
[2017-04-20 07:37] LABS: PARTIAL THROMBOPLASTIN RATIO 4.5
[2017-04-20] MEDS: KEPPRA PO SCH (07:52)
[2017-04-20] MEDS: ASPIRIN 81 MG ECTAB PO SCH (07:53)
--- NOTE | 2017-04-20 07:57 | ELECTROENCEPHALOGRAPH REPORT ---
REQUESTING DOCTOR: Dr. Romain Blank. CLINICAL DIAGNOSIS: Known seizure disorder post-resection of a benign lesion in the right hemisphere, now with dysarthria of speech. EEG DIAGNOSIS: Mildly focally abnormal EEG with some higher amplitude theta delta activity overlying the right hemisphere and occurring intermittently during wakefulness. DESCRIPTION OF TRACING: This EEG was done as a bedside recording with simultaneous video analysis of patient movement and behavior. Photic stimulation was performed. Hyperventilation was not. Drowsiness and light sleep were not recorded. Under these conditions, there is evidence for a normal appearing background rhythm in the alpha range of up to 9-10 Hz of maximum frequency and 30 microvolts of maximum amplitude. This is maximum posterior head regions and bilaterally symmetrical. Polymorphic modest amplitude theta activity is seen over all head regions with periodic increase in its amplitude and slightly lower frequencies overlying the right hemisphere without any apparent clinical accompaniments or associated sharp wave discharges. These events occur in shorter intervals lasting up to 3 seconds or more and then reverts to the old fairly symmetrical pattern of modest amplitude mid frequency theta activity. Anterior head region maximum bilaterally symmetrical low voltage fast activity in the beta range is present. Photic stimulation provoked some modest driving response without a photomyogenic or photoparoxysmal component. At no time during the waking tracing is there evidence for a clearcut potentially epileptogenic activity in the form of polyspike or spike wave bursts, focal sharp waves or focal spikes, any intermittent bursts of slow wave activity described previously probably reflect a known underlying structural disease rather than potentially epileptogenic activity but the latter cannot be totally excluded. INTERPRETATION: Overall, then this study is mildly focally abnormal with a pattern that suggests the presence of an underlying structural lesion involving the right hemisphere and this does correlate with the history of surgical resection and the MRI scan which does not show any new evidence for a process in this area of the brain.
[2017-04-20 08:00] VITALS: BP 119/81; PULSE 55; TEMP 36.6; O2SAT 97
[2017-04-20 08:39] LABS: PARTIAL THROMBOPLASTIN RATIO 2.5
[2017-04-20 11:57] VITALS: BP 117/59; PULSE 59; TEMP 36.4; O2SAT 98
[2017-04-20 15:35] VITALS: BP 111/66; PULSE 65; TEMP 36.8; O2SAT 97
[2017-04-20] MEDS ORDERED: WARFARIN SOD 5 MG TAB PO SCH (16:00)
[2017-04-20 16:09] LABS: PARTIAL THROMBOPLASTIN RATIO 2.2
--- NOTE | 2017-04-20 17:40 | PROGRESS NOTE ---
DATE: 04/20/2017 SUBJECTIVE: I saw Simba today and his , I believe was in the room and had a number of questions. Earlier today, Dr. Hernandez tried to set up an outpatient bridging program with Lovenox and Coumadin to let him get out of the hospital which he desperately wants to do, but I am not sure this is going to be economically viable. He and Dr. Hernandez going to discuss this and he may end up paying klein for the procedure. I have no problem with this as I think the anticoagulation program is well in hand now. He is going to need to be on Coumadin probably for 3 months or at least until we can get another CTA done and this will be scheduled about 3 months after this one and again if there is recanalization which I suspect there will be and the vessel was widely open and there is no residual clot, then I think we can go right with aspirin. The current literature even supports the use of aspirin and Plavix in these situations, but I am a bit old school on this and prefer the Coumadin approach followed by aspirin. Whatever the case, his exam shows left hemiparesis which is chronic and the increased articulatory disturbances which I think are reflection of cerebellar infarctions. If he is discharged today then he will need to see neurology and return in about a month for an assessment and we will continue his Keppra at a current dose and the level should be available for review, and will know by that time whether his speech is going to improve. I told he and his that the improvement rate for this type of defect is usually maximum in about 3 months and continuous for about 6 months after which time it is usually stable. My suspicions are that he will be back to his old baseline within 4-6 weeks. I will check back with him tomorrow if indeed he is still in the hospital depending on what arrangements can be made. HARSH
--- NOTE | 2017-04-20 18:06 | Progress Note ---
Medicine Progress Note Date & Time of Visit: Apr 20, 2017 at 17:57. Subjective Pt was seen and examined Lying in bed with no distress with and mother at bedside Pt said that speech seems to be the same He is very anxious to go home Denies any chest pain, palpitation, dizziness and sob Objective Last 8 Hrs Date Time Temp Pulse Resp B/P (MAP) Pulse Ox O2 Delivery O2 Flow Rate FiO2 04/20/17 16:00 Room Air 04/20/17 15:35 36.8 65 17 111/66 (81) 97 Room Air 04/20/17 12:00 Room Air 04/20/17 11:57 36.4 59 16 117/59 (78) 98 Room Air Physical Exam: General- No acute distress Head- atraumatic Eyes- PERRL, EOMI ENT- oropharynx clear Neck- supple, no JVD Lungs- clear to auscultation Heart- regular rhythm, No murmur Abdomen- normal bowel sounds, soft Extremities- no calf tenderness Neuro- alert, oriented x 3; PERRL, EOMI; slight speech dysarthria, decrease strength in the left side (chronic) Skin- warm & dry Laboratory Results: Last 24 Hours Test 04/19/17 23:09 04/20/17 05:47 04/20/17 07:03 04/20/17 08:12 Activated Partial Thromboplast Time 42.3 SECONDS 149.4 SECONDS 116.1 SECONDS 64.4 SECONDS Partial Thromboplastin Ratio 1.6 5.7 4.5 2.5 White Blood Count 5.67 K/uL Red Blood Count 4.80 M/uL Hemoglobin 15.9 g/dL Hematocrit 45.3 % Mean Corpuscular Volume 94.4 fL Mean Corpuscular Hemoglobin 33.1 pg Mean Corpuscular Hemoglobin Concent 35.1 g/dl Platelet Count 181 K/uL Mean Platelet Volume 9.8 fL Neutrophils (%) (Auto) 52.4 % Lymphocytes (%) (Auto) 25.7 % Monocytes (%) (Auto) 16.8 % Eosinophils (%) (Auto) 4.2 % Basophils (%) (Auto) 0.7 % Neutrophils # (Auto) 2.97 K/uL Lymphocytes # (Auto) 1.46 K/uL Monocytes # (Auto) 0.95 K/uL Eosinophils # (Auto) 0.24 K/uL Basophils # (Auto) 0.04 K/uL RDW Standard Deviation 43.6 fL RDW Coefficient of Variation 12.6 % Immature Granulocyte % (Auto) 0.2 % Immature Granulocyte # (Auto) 0.01 K/uL Sodium Level 140 mmol/L Potassium Level 3.8 mmol/L Chloride Level 106 mmol/L Carbon Dioxide Level 29 mmol/L Anion Gap 5.0 mmol/L Blood Urea Nitrogen 14 mg/dl Creatinine 0.85 mg/dl Est Creatinine Clear Calc Drug Dose 117.2 ml/min Estimated GFR () 127.2 Estimated GFR (Non- 109.8 BUN/Creatinine Ratio 16.4 Random Glucose 99 mg/dl Calcium Level 9.0 mg/dl Test 04/20/17 15:23 Activated Partial Thromboplast Time 56.0 SECONDS Partial Thromboplastin Ratio 2.2 Assessment & Plan Acute/ Subacute right cerebellar hemisphere infarct Present right dysarthria since Tuesday night CT head negative for acute finding MRI showed small foci of restricted water diffusion within the right cerebellar hemisphere, consistent with acute/subacute infarction On aspirin and statin MRA of neck showed Irregular, diminutive midportion of the left vertebral artery with multifocal severe stenoses. CTA neck showed Irregularity extends to the C3-4 level. 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 Case discussed with neurology recommended to start heparin drip and coumadin with INR goal btw 2 to 2.5 Hypercoagulable work up pending Continue statin and aspirin Continue PT/OT Repeat CTA in three months and if recanalized then switch to asa only 04/20 very anxious to go home Discussed with neurology for possible lovenox bridge with coumadin Dr. Blank ok with that if pt can get the lovenox since it is costly histology manager checked the gates and it will cost pt over $200 for 5 days lovenox Will confirm tomorrow with medical case manager about the gates will start lovenox tonight Continue coumadin 5 mg will need to follow with the [facility] clinic Follow up [facility] neuro in 1 months Hypercoagulable work up pending ECHO done showed * There is normal left ventricular wall thickness. * The left ventricular wall motion is normal. * The LV Ejection Fraction = 55-60%. * The LV diastolic function is normal. * There is no significant valvular heart disease. Seizure disorder No seizure activity since 2005. Cont Keppra. Keppra level pending DVT proph on heparin drip Code status Full Code Disposition Continue monitor in telemetry Possible discharge tomorrow Consultants: Neuro Current Inpatient Medications: Current Inpatient Medications Medications (Trade) Dose Ordered Sig/Foreign Route Start Time Stop Time Status Last Admin Dose Admin Atorvastatin Calcium (Lipitor Tab) 80 mg HS PO 04/18/17 21:00 05/18/17 20:59 04/19/17 20:05 80 MG Aspirin (Ecotrin Tab) 81 mg QAM PO 04/19/17 09:00 05/19/17 08:59 04/20/17 07:53 81 MG Miscellaneous Information (Pharmacist Discharge Med Rec Consult) 1 ea UD PRN N/A 04/18/17 16:45 05/18/17 16:44 Acetaminophen (Tylenol Tab) 650 mg Q4H PRN PO 04/18/17 16:45 05/18/17 16:44 Ondansetron HCl (Zofran Inj) 4 mg Q6H PRN IV 04/18/17 16:45 05/18/17 16:44 Polyethylene (Miralax Powder Packet) 17 gm DAILY PRN PO 04/18/17 16:45 05/18/17 16:44 Gadobutrol (Gadavist) 7 mmol UD PRN IV 04/18/17 23:30 04/22/17 23:29 Non-Formulary Medication 4 ea QAM PO 04/19/17 09:00 05/19/17 08:59 04/20/17 07:52 4 EA Ioversol (Optiray 320) 125 ml UD PRN IV 04/19/17 11:15 04/23/17 11:14 Heparin Sodium/ Dextrose 500 ml @ 24 mls/hr [id number] PRN IV 04/19/17 16:00 05/19/17 15:59 04/20/17 14:18 24 MLS/HR Warfarin Sodium (Coumadin Tab) 5 mg DAILY@16 PO 04/20/17 16:00 05/20/17 15:59 04/20/17 16:14 5 MG
[2017-04-20 19:21] VITALS: BP 118/78; PULSE 65; TEMP 37; O2SAT 96
[2017-04-20] MEDS ORDERED: NURSING VERBAL MED ORDER ONE (19:45)
[2017-04-20] MEDS ORDERED: LOVENOX TEACHING KIT ONE (20:30)
[2017-04-20] MEDS ORDERED: ENOXAPARIN 1 MG/KG SQ SCH (21:00)
[2017-04-20] MEDS: ENOXAPARIN 80 MG/0.8 ML SYR SQ SCH (21:18)
[2017-04-20] MEDS: ATORVASTATIN 40 MG TAB PO SCH (21:26)
[2017-04-20 23:00] VITALS: BP 121/73; PULSE 57; TEMP 36.5; O2SAT 98
[2017-04-21 04:35] VITALS: BP 115/79; PULSE 56; TEMP 36.7; O2SAT 97
[2017-04-21 05:22] LABS: BASO % 0.3 %; BASO ABS # 0.02 K/uL (0-0.2); COMPLETE YES; HEMATOCRIT 44.4 % (42-52); IG% 0.2 %; LYMPH % 32.1 %; LYMPH ABS # 2.05 K/uL (1.2-3.4); MEAN CELL VOLUME 95.7 fL (80-100); MEAN CORPUSCULAR HEMOGLOBIN 32.8 pg (25-34); MEAN CORPUSCULAR HGB CONC 34.2 g/dl (32-36); MEAN PLATELET VOLUME 9.8 fL (7.4-10.4); MONO % 14.9 %; NEUT % 49.5 %; PLATELET COUNT 195 K/uL (130-400); RED BLOOD COUNT 4.64 M/uL (4.7-6.1); WHITE BLOOD COUNT 6.38 K/uL (4.8-10.8)
[2017-04-21 05:33] LABS: PARTIAL THROMBOPLASTIN RATIO 1.2; PROTHROMBIN TIME (PATIENT) 10.9 SECONDS (9.0-12.0)
[2017-04-21 05:46] LABS: BUN/CREATININE RATIO 15.2 (10-20); CALCIUM 8.8 mg/dl (8.5-10.1); POTASSIUM 3.9 mmol/L (3.5-5.1)
[2017-04-21 05:48] LABS: ALB/GLOB RATIO 1.1 (0.9-2)
[2017-04-21] MEDS: KEPPRA PO SCH (07:46)
[2017-04-21] MEDS: ASPIRIN 81 MG ECTAB PO SCH (07:46)
[2017-04-21] MEDS: ENOXAPARIN 80 MG/0.8 ML SYR SQ SCH (07:47)
[2017-04-21 08:04] VITALS: BP 112/82; PULSE 76; TEMP 36.9; O2SAT 95
--- NOTE | 2017-04-21 12:05 | Progress Note ---
Medicine Progress Note Date & Time of Visit: Apr 21, 2017 at 11:51. Subjective Pt was seen and examined Lying in bed comfortable with Pt said that he feels fine He said that he was able to get a shower He feels comfortable to inject the Lovenox to himself Denies any chest pain, palpitation, dizziness and SOB Objective Last 8 Hrs Date Time Temp Pulse Resp B/P (MAP) Pulse Ox O2 Delivery O2 Flow Rate FiO2 04/21/17 08:04 36.9 76 18 112/82 (92) 95 04/21/17 08:00 Room Air 04/21/17 04:35 36.7 56 16 115/79 (91) 97 Room Air 04/21/17 04:00 Room Air Physical Exam: General- No acute distress Head- atraumatic Eyes- PERRL, EOMI ENT- oropharynx clear Neck- supple, no JVD Lungs- clear to auscultation Heart- regular rhythm, No murmur Abdomen- normal bowel sounds, soft Extremities- no calf tenderness Neuro- alert, oriented x 3; PERRL, EOMI; slight speech dysarthria, decrease strength in the left side (chronic) Skin- warm & dry Laboratory Results: Last 24 Hours Test 04/20/17 15:23 04/21/17 04:55 Activated Partial Thromboplast Time 56.0 SECONDS 30.1 SECONDS Partial Thromboplastin Ratio 2.2 1.2 White Blood Count 6.38 K/uL Red Blood Count 4.64 M/uL Hemoglobin 15.2 g/dL Hematocrit 44.4 % Mean Corpuscular Volume 95.7 fL Mean Corpuscular Hemoglobin 32.8 pg Mean Corpuscular Hemoglobin Concent 34.2 g/dl Platelet Count 195 K/uL Mean Platelet Volume 9.8 fL Neutrophils (%) (Auto) 49.5 % Lymphocytes (%) (Auto) 32.1 % Monocytes (%) (Auto) 14.9 % Eosinophils (%) (Auto) 3.0 % Basophils (%) (Auto) 0.3 % Neutrophils # (Auto) 3.16 K/uL Lymphocytes # (Auto) 2.05 K/uL Monocytes # (Auto) 0.95 K/uL Eosinophils # (Auto) 0.19 K/uL Basophils # (Auto) 0.02 K/uL RDW Standard Deviation 44.2 fL RDW Coefficient of Variation 12.7 % Immature Granulocyte % (Auto) 0.2 % Immature Granulocyte # (Auto) 0.01 K/uL Prothrombin Time 10.9 SECONDS Prothromb Time International Ratio 1.0 Sodium Level 141 mmol/L Potassium Level 3.9 mmol/L Chloride Level 106 mmol/L Carbon Dioxide Level 33 mmol/L Anion Gap 2.0 mmol/L Blood Urea Nitrogen 15 mg/dl Creatinine 1.00 mg/dl Est Creatinine Clear Calc Drug Dose 99.6 ml/min Estimated GFR () 109.4 Estimated GFR (Non- 94.4 BUN/Creatinine Ratio 15.2 Random Glucose 95 mg/dl Calcium Level 8.8 mg/dl Total Bilirubin 0.6 mg/dl Aspartate Amino Transf (AST/SGOT) 22 U/L Alanine Aminotransferase (ALT/SGPT) 46 U/L Alkaline Phosphatase 56 U/L Total Protein 7.0 gm/dl Albumin 3.7 gm/dl Globulin 3.3 gm/dl Albumin/Globulin Ratio 1.1 Assessment & Plan Acute/ Subacute right cerebellar hemisphere infarct Present right dysarthria since Tuesday night CT head negative for acute finding MRI showed small foci of restricted water diffusion within the right cerebellar hemisphere, consistent with acute/subacute infarction On aspirin and statin MRA of neck showed Irregular, diminutive midportion of the left vertebral artery with multifocal severe stenoses. CTA neck showed Irregularity extends to the C3-4 level. 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 Case discussed with neurology recommended to start heparin drip and coumadin with INR goal btw 2 to 2.5 Hypercoagulable work up pending Continue statin and aspirin Continue PT/OT Repeat CTA in three months and if recanalized then switch to asa only 04/20 very anxious to go home Discussed with neurology for possible lovenox bridge with coumadin Dr. Blank ok with that if pt can get the lovenox since it is costly photography manager checked the [facility] and it will cost pt over $200 for 5 days lovenox Will confirm tomorrow with sample case porter about the gates will start lovenox tonight Continue coumadin 5 mg will need to follow with the [facility] clinic Follow up [facility] neuro in 1 months Hypercoagulable work up pending 04/21 Lovenox started last night He learned how to inject the lovenox to himself and he is comfortable to do it Advised pt that the INR needs to be therapeutic for 48hrs to stop the lovenox Major side effect about Coumadin discussed such as bleeding, hematuria Pt understand that he needs to be compliant with the anticoagulant Follow up with the coag clinic Follow up with neuro in 1 month Repeat CTA neck in three months and if recanalized then switch to asa only ECHO done showed * There is normal left ventricular wall thickness. * The left ventricular wall motion is normal. * The LV Ejection Fraction = 55-60%. * The LV diastolic function is normal. * There is no significant valvular heart disease. Seizure disorder No seizure activity since 2005. Cont Keppra. Keppra level pending DVT proph on heparin drip Code status Full Code Disposition Possible discharge today Consultants: Neuro Current Inpatient Medications: Current Inpatient Medications Medications (Trade) Dose Ordered Sig/Foreign Route Start Time Stop Time Status Last Admin Dose Admin Atorvastatin Calcium (Lipitor Tab) 80 mg HS PO 04/18/17 21:00 05/18/17 20:59 04/20/17 21:26 80 MG Aspirin (Ecotrin Tab) 81 mg QAM PO 04/19/17 09:00 05/19/17 08:59 04/21/17 07:46 81 MG Miscellaneous Information (Pharmacist Discharge Med Rec Consult) 1 ea UD PRN N/A 04/18/17 16:45 05/18/17 16:44 Acetaminophen (Tylenol Tab) 650 mg Q4H PRN PO 04/18/17 16:45 05/18/17 16:44 Ondansetron HCl (Zofran Inj) 4 mg Q6H PRN IV 04/18/17 16:45 05/18/17 16:44 Polyethylene (Miralax Powder Packet) 17 gm DAILY PRN PO 04/18/17 16:45 05/18/17 16:44 Gadobutrol (Gadavist) 7 mmol UD PRN IV 04/18/17 23:30 04/22/17 23:29 Non-Formulary Medication 4 ea QAM PO 04/19/17 09:00 05/19/17 08:59 04/21/17 07:46 4 EA Ioversol (Optiray 320) 125 ml UD PRN IV 04/19/17 11:15 04/23/17 11:14 Warfarin Sodium (Coumadin Tab) 5 mg DAILY@16 PO 04/20/17 16:00 05/20/17 15:59 04/20/17 16:14 5 MG Enoxaparin Sodium (Lovenox Inj) 70 mg Q12H SQ 04/20/17 20:00 05/20/17 19:59 04/21/17 07:47 70 MG
[2017-04-21 12:10] VITALS: BP 126/83; PULSE 60; TEMP 36.7; O2SAT 93
[2017-04-21] MEDS ORDERED: CMD5 PO (12:18)
[2017-04-21] MEDS ORDERED: ASPEC81 PO (12:18)
[2017-04-21] MEDS ORDERED: LPT40 PO (12:18)
[2017-04-21] MEDS ORDERED: LVNIS80 SQ (12:18)
--- NOTE | 2017-04-21 12:25 | Discharge Instructions ---
Discharge Instructions Date of Service Apr 21, 2017. Admission Reason for Admission: Stroke Discharge Discharge Diagnosis / Problem: Acute/ Subacute right cerebellar hemisphere infarct, Hx Seizure disorder Discharge Goals Goal(s): Decrease discomfort, Improve function, Improve disease control Activity Recommendations Activity Limitations: resume your previous activity (as tolerated) . Instructions / Follow-Up Instructions / Follow-Up Follow up with your primary care provider Dr. Bray on 04/26 @ 10:05 Follow up with Neurology Dr. Blank on 06/07 @ 10:10 Follow up with speech therapy (your physician will arrange for the referral) Follow up with the Coumadin clinic (will call you for appointment) Fall precaution Avoid activities at high level Repeat CTA neck in 3 months (your neurology will arrange for that) Follow a low cholesterol diet Lab order given for Coumadin Medication Instructions: Coumadin * Warfarin is a medicine prescribed to prevent blood clots and stroke * Warfarin will thin your blood and help prevent new clots * Take your medications exactly as directed * Never skip a dose. Never take a double dose. If you miss a dose, take it as soon as you remember * It is important for your doctor to monitor your prothrombin time (PT/INR). This is a lab test * Keep your appointment for lab tests * Avoid NSAID (Ibuprofen, Motrin, Aleve, Naproxen, Celebrex) due to risk of bleeding Risk of Adverse Drug Reactions and Interactions: * Warfarin increases your risk of bleeding * The food you eat and other medications you take can affect how Warfarin works in your body * Ask your doctor about daily aspirin therapy * It is very important to talk with your doctor about all of the other medicines , antibiotics, vitamins or herbal products that you are taking * All of your medication must be approved by your doctor, including new medicines, as well as medicines you have taken before you started taking Warfarin Diet: * In order for Warfarin to work properly, it is important to keep your intake of Vitamin K as consistent as possible * You should avoid any sudden change in Vitamin K intake * Report any significant changes in your diet or weight to your doctor Call your Primary Care doctor if you experience any of the following: * Swelling or Pain in your leg * Sudden, continuous pain deep in a muscle * Pain that worsens when you are active or when you stand still for a long time * Chest Pain * Sudden Shortness of Breath * Rapid or pounding heart beat * Fainting * Dizziness * Cough with blood or bloody sputum * Sweating more than normal * Bruises * Heavy or uncontrolled bleeding * Blood in your urine, stool or vomit * Black or tarry stools Follow Up: It is important for you to keep your follow up appointments with your medical provider. Current Hospital Diet Patient's current hospital diet: Regular Diet Discharge Diet Recommended Diet: Regular Diet (with low cholesterol) Pending Studies Studies pending at discharge: yes List of pending studies: Hypercoagulable work up Keppra level Laboratory Results Hemoglobin A1c Test 04/18/17 14:30 Range/Units Estimated Average Glucose 97 mg/dl Hemoglobin A1c 5.0 4.5-5.6 % Lipid Panel Test 04/19/17 05:52 Range/Units Triglycerides Level 145 0-150 mg/dl Cholesterol Level 234 H 0-200 mg/dl HDL Cholesterol 91 mg/dl Cholesterol/HDL Ratio 2.6 LDL Cholesterol, Calculated 114 mg/dl Medical Emergencies . Who to Call and When: Medical Emergencies: If at any time you feel your situation is an emergency, please call 911 immediately. . Non-Emergent Contact Non-Emergency issues call your: Primary Care Provider, Neurologist Call Non-Emergent contact if: you have any medication questions . . "Provider Documentation" section prepared by Alistair Hernandez. . VTE Core Measure Inpt VTE Proph given/why not?: Enoxaparin (Lovenox)SQ, Warfarin (Coumadin)
[2017-04-21 14:25] VITALS: BP 126/83; PULSE 60; TEMP 36.7; O2SAT 93
--- NOTE | 2017-04-21 14:40 | Discharge Summary ---
Discharge Summary Date of Service Apr 21, 2017. Discharge Summary Admission Date: Apr 18, 2017 at 17:44 Discharge Date: Apr 21, 2017 Discharge Disposition: Home Principal Diagnosis: Acute/ Subacute right cerebellar hemisphere infarct Secondary Diagnoses/Problems: Seizure disorder Procedures: NECK ANGIO WITH CONTRAST CLINICAL HISTORY: 41 years-old Male presenting with PER ARG DO WITH. TECHNIQUE: Multidetector CT angiography of the neck was performed after the administration of intravenous contrast. 3-D volumetric and/or maximum intensity projection (MIP) images were subsequently reconstructed for review. IV contrast: 120 mL of Optiray 320. A dose lowering technique was used consistent with the principles of ALARA (as low as reasonably achievable). Stenosis measurements were based on NASCET-like criteria. COMPARISON: MRA neck from 04/18/2017. CT DOSE (mGy.cm): The estimated cumulative dose is 459.21 mGy.cm. FINDINGS: Client Care Manager topogram: Unremarkable. Three-vessel aortic arch. Patent origins of the major branch vessels. Bilateral common and internal carotid arteries patent throughout their cervical courses. Origins of the bilateral vertebral arteries patent. As seen on MR, irregular narrowing of the left vertebral artery proximal to its course within the foramen transversarium. Irregularity extends to the C3-4 level. 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 Distal portions of the left vertebral artery patent and normal in caliber. Limited intracranial evaluation demonstrates patent vasculature. Large cystic defect in the right temporal lobe with postsurgical changes of right pterional craniotomy. 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 This is unchanged in extent. Distal left vertebral artery patent. Electronically signed by: Constantine Meraz M.D. 04/19/2017 1:54 PM Dictated Date/Time: 04/19/2017 1:49 PM [~ rep ct add3]] MRI OF THE BRAIN WITHOUT AND WITH IV CONTRAST CLINICAL HISTORY: Stroke. New onset dysarthria. History of 2011 craniotomy. COMPARISON STUDY: MRI the brain dated 05/22/2013 TECHNIQUE: MRI of the brain was performed from the vertex to the skull base utilizing various T1 and T2 weighted sequences. Following the IV administration of 7 mL of Gadavist contrast, additional enhanced images were obtained. FINDINGS: Sagittal T1, axial diffusion, proton density and T2 weighted axial, coronal FLAIR, and pre and post axial T1-weighted images were acquired. These were supplemented with post gadolinium coronal T1 weighted images. There is a persistent 6 cm cystic lesion within the right temporal lobe containing a few inferior septations. This demonstrates no pathologic enhancement. There is persistent mild mass effect on the thalamus. There are small foci of restricted water diffusion within the right cerebellar hemisphere consistent with areas of acute/subacute infarction. There is no evidence of ventricular dilatation. Proton density T2-weighted and FLAIR images reveal no significant intraparenchymal signal abnormalities with the exception of minor right periventricular edema. There are no abnormal flow voids. There is no evidence of pathologic enhancement. IMPRESSION: 1. Small foci of restricted water diffusion within the right cerebellar hemisphere, consistent with acute/subacute infarction 2. Stable 6 cm cystic lesion within the right temporal lobe containing a few inferior septations. There is no pathologic enhancement. There is stable mild adjacent T2 and FLAIR hyperintensity. Electronically signed by: Howard Ibarra M.D. 04/19/2017 6:56 AM Dictated Date/Time: 04/19/2017 6:51 AM MR ANGIOGRAPHY OF THE [place] NO CONTRAST CLINICAL HISTORY: Stroke - Attention to [facility] [place] COMPARISON STUDY: None. A 3-D [id number] MR angiographic sequence of the [place] was performed. Both the source and projection images were reviewed. There is no evidence of major intracranial branch occlusion. There is no evidence of intracranial stenosis. There are no lesions suspicious for aneurysm. There is a right temporal lobe cystic lesion. This was described on the prior MRI the brain. The right anterior inferior cerebellar artery is not visualized. The left posterior inferior cerebellar artery is not visualized. IMPRESSION: Possible vertebrobasilar anatomic variants. Otherwise unremarkable MR angiography of the [place]. Electronically signed by: Howard Ibarra M.D. 04/19/2017 7:18 AM Dictated Date/Time: 04/19/2017 7:11 AM MRA OF THE NECK WITH AND WITHOUT CONTRAST CLINICAL HISTORY: Stroke COMPARISON STUDY: None. TECHNIQUE: Unenhanced and contrast-enhanced MRA of the neck was performed. Injection of 7 mL of Gadavist IV was uneventful. NASCET criteria were utilized to estimate the degree of carotid stenosis. FINDINGS: The bilateral common carotid and internal carotid arteries are patent. There is no hemodynamically significant stenosis within these 2 vessels. There is no evidence for dissection within these vessels. The midportion of the left vertebral artery is diminutive and irregular. Multifocal stenoses are present within this vessel. The origin of the left vertebral artery is patent. The distal left vertebral artery is normal in appearance. The right vertebral artery is normal. IMPRESSION: 1. No stenosis within the bilateral common carotid and internal carotid arteries. 2. Irregular, diminutive midportion of the left vertebral artery with multifocal severe stenoses. The chronicity and etiology for this finding is uncertain on this exam. Electronically signed by: Shaq Pierce M.D. 04/19/2017 7:31 AM Dictated Date/Time: 04/19/2017 7:[address] OF THE HEAD WITHOUT CONTRAST CLINICAL HISTORY: Stroke. Speech problems. COMPARISON STUDY: MRI of the brain May 22, 2013. CT DOSE: 700.35 mGycm TECHNIQUE: Helical axial images of the head were obtained without IV contrast. Automated exposure control was utilized for the study. A dose lowering technique was utilized adhering to the principles of ALARA. FINDINGS: The patient is status post right temporal craniotomy. A 5.5 x 5.2 cm CSF attenuation right temporal lobe abnormality is similar to exam of May 22, 2013. This contains several thin septations. No acute intracranial hemorrhage is present. Ventricular system is stable. Basilar cisterns are patent. There are no extra-axial fluid collections. There are no findings to suggest acute dural sinus thrombosis or acute territorial infarct. There are no significant calvarial abnormalities. There may be a mucous retention cyst within the left sphenoid sinus. Mastoid air cells are clear. IMPRESSION: 1. No acute intracranial findings. 2. No significant change in the right temporal lobe cystic lesion since MRI of May 22, 2013. Electronically signed by: Shaq Pierce M.D. 04/18/2017 3:30 PM Dictated Date/Time: 04/18/2017 3:25 PM Interpretation Summary * Name: ROQUE BRUCE Study Date: 04/19/2017 06:39 AM BP: 97/62 mmHg * Patient Location: [facility]\\S\\[id number]\\[id number]\\[id number] HR: 49 * : 1975 (M/d/yyyy) Gender: Male Height: 70 in * Age: 41 yrs Ethnicity: CA Weight: 162 lb * Ordering Physician: Serena Cerda * Referring Physician: Self, Referred * Performed By: Bekah Gudino RDCS * * Reason For Study: CEREBRAL ISCHEMIA/EMBOLUS * BSA: 1.9 m2 * -- Conclusions -- * There is normal left ventricular wall thickness. * The left ventricular wall motion is normal. * The LV Ejection Fraction = 55-60%. * The LV diastolic function is normal. * There is no significant valvular heart disease. Procedure Details * A saline contrast injection was performed to assess for cardiac shunting. * The injection was performed through an intravenous line in the right arm. * The attending nurse who injected the saline contrast was CANDELARIA HOBBS RN. * A total of 20 cc of agitated saline was given. * A contrast injection of Definity was performed to improve assessment of LV function. * Contrast was injected into an intravenous site in the right arm. * One vial of Definity ultrasound contrast was diluted in normal saline to a total volume of 10 ml. A total of '2]' ml of solution was administered during imaging. * Lot # [id number] of Definity utilized for procedure. * Expiration date MAY 18. * The attending nurse who injected the contrast agent was CANDELARIA HOBBS RN. * A complete two-dimensional transthoracic echocardiogram was performed (2D, M- mode, Doppler and color flow Doppler). Left Ventricle * The left ventricle is normal in size. * There is normal left ventricular wall thickness. * Ejection Fraction = 55-60%. * Left ventricular systolic function is normal. * The left ventricular wall motion is normal. Right Ventricle * The right ventricle is normal size. * The right ventricular systolic function is normal as assessed by tricuspid annular plane systolic excursion (TAPSE) (normal >1.5 cm). Atria * The left atrial size is normal. * Right atrial size is normal. * The interatrial septum is intact with no evidence for an atrial septal defect. Mitral Valve * The mitral valve is normal. * There is no mitral valve stenosis. * Significant mitral regurgitation is absent. Tricuspid Valve * The tricuspid valve is normal. * There is no tricuspid stenosis. * Significant tricuspid regurgitation is absent. Aortic Valve * The aortic valve is trileaflet. * Aortic stenosis is absent. * There is no significant aortic regurgitation. Pulmonic Valve * The pulmonary valve is not well seen, but the Doppler examination is normal without significant regurgitation or stenosis. Great Vessels * The aortic root and proximal ascending aorta are normal sized. Pericardium/Pleural * There is no pericardial effusion. Great Vessels * Normal inferior vena cava diameter and respiratory variation suggests normal central venous pressure. Left Ventricular Diastolic Function * The LV diastolic function is normal. Consultations: Neuro Medication Reconciliation New Medications: Atorvastatin (Atorvastatin Calcium) 40 Mg Tab 80 MG PO HS for 30 Days, TAB Enoxaparin (Lovenox) 80 Mg/0.8 Ml Inj 70 MG SQ Q12H for 5 Days, #10 Warfarin Sod (Coumadin) 5 Mg Tab 5 MG PO DAILY@16 for 30 Days, TAB Continued Medications: Levetiracetam (Levetiracetam Er) 750 Mg Tab 4 TAB PO HS Admission Information HPI (per Admitting provider): Mr. Bruce is a 41 yo M with h/o post-op stroke in 2005 who presents today with acute dysarthria that began suddenly yesterday when he woke up in the morning. 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 He then had one seizure 8 months post-op but since that time has remained seizure-free on Keppra at current dose. He denies any recent illnesses such as colds, diarrhea or UTI symptoms. He denies any headache, fevers, chills, neck stiffness, cough, sore throat, rash, nausea, vomiting, chest pain, shortness of breath, visual changes, changes in weakness in limbs or with gait. He denies any recent stressors, changes in meds or taking any OTC meds, and denies any trauma to his brain such as an MVA in recent months. His symptoms are specific to his expression and his comprehension is intact. He also denies any difficulties with swallowing. No new numbness or tingling, no vertigo and no lightheadedness. Physical Exam (per Admitting): General Appearance: WD/WN, no apparent distress Head: normocephalic, atraumatic Eyes: normal inspection, PERRL, EOMI, sclerae normal ENT: normal ENT inspection, hearing grossly normal, pharynx normal Neck: supple, no adenopathy, no JVD Respiratory/Chest: lungs clear, normal breath sounds, no respiratory distress, no accessory muscle use Cardiovascular: regular rate, rhythm, no edema, no gallop, no JVD, no murmur , normal peripheral pulses Abdomen/GI: normal bowel sounds, non tender, soft Back: normal inspection Extremities/Musculoskelatal: normal inspection, + pertinent finding ( chronic unchanged, L foot drop, L hemiparalysis with contracture of L arm, 5/5 strength in left leg. ) Neurologic/Psych: bsa officer II-XII nml as tested, alert, normal mood/affect, + abnormal gait (chronic without any new changes. ), + pertinent finding ( hyperreflexic in L leg knee reflex, could no elicit S1 reflex. ) Skin: normal color, warm/dry, no rash Hospital Course Acute/ Subacute right cerebellar hemisphere infarct Present right dysarthria since Tuesday night CT head negative for acute finding MRI showed small foci of restricted water diffusion within the right cerebellar hemisphere, consistent with acute/subacute infarction On aspirin and statin MRA of neck showed Irregular, diminutive midportion of the left vertebral artery with multifocal severe stenoses. CTA neck showed Irregularity extends to the C3-4 level. 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 Case discussed with neurology recommended to start heparin drip and coumadin with INR goal btw 2 to 2.5 Hypercoagulable work up pending Continue statin and aspirin Continue PT/OT Repeat CTA in three months and if recanalized then switch to asa only 04/20 very anxious to go home Discussed with neurology for possible lovenox bridge with coumadin Dr. Blank ok with that if pt can get the lovenox since it is costly operations section manager checked the gates and it will cost pt over $200 for 5 days lovenox Will confirm tomorrow with showcase maker about the gates will start lovenox tonight Continue coumadin 5 mg will need to follow with the coag clinic Follow up yeny tiwari in 1 months Hypercoagulable work up pending 04/21 Lovenox started last night He learned how to inject the lovenox to himself and he is comfortable to do it Advised pt that the INR needs to be therapeutic for 48hrs to stop the lovenox Major side effect about Coumadin discussed such as bleeding, hematuria Pt understand that he needs to be compliant with the anticoagulant Follow up with the coag clinic Follow up with neuro in 1 month Repeat CTA neck in three months and if recanalized then switch to asa only ECHO done showed * There is normal left ventricular wall thickness. * The left ventricular wall motion is normal. * The LV Ejection Fraction = 55-60%. * The LV diastolic function is normal. * There is no significant valvular heart disease. Seizure disorder No seizure activity since 2005. Cont Keppra. Keppra level pending DVT proph on heparin drip Code status Full Code Disposition Possible discharge today Total time spent on discharge = 40 minutes This includes examination of the patient, discharge planning, medication reconciliation, and communication with other providers. Discharge Instructions Discharge Instructions Date of Service Apr 21, 2017. Admission Reason for Admission: Stroke Discharge Discharge Diagnosis / Problem: Acute/ Subacute right cerebellar hemisphere infarct, Hx Seizure disorder Discharge Goals Goal(s): Decrease discomfort, Improve function, Improve disease control Activity Recommendations Activity Limitations: resume your previous activity (as tolerated) . Instructions / Follow-Up Instructions / Follow-Up Follow up with your primary care provider Dr. Laguerre on 04/26 @ 10:05 Follow up with Neurology Dr. Blank on 06/07 @ 10:10 Follow up with speech therapy (your physician will arrange for the referral) Follow up with the coumadin clinic (will call you for appointment) Fall precaution Avoid activities at high level Repeat CTA neck in 3 months (your neurology will arrange for that) Follow a low cholesterol diet Medication Instructions: Coumadin * Warfarin is a medicine prescribed to prevent blood clots and stroke * Warfarin will thin your blood and help prevent new clots * Take your medications exactly as directed * Never skip a dose. Never take a double dose. If you miss a dose, take it as soon as you remember * It is important for your doctor to monitor your prothrombin time (PT/INR). This is a lab test * Keep your appointment for lab tests * Avoid NSAID (Ibuprofen, Motrin, Aleve, Naproxen, Celebrex) due to risk of bleeding Risk of Adverse Drug Reactions and Interactions: * Warfarin increases your risk of bleeding * The food you eat and other medications you take can affect how Warfarin works in your body * Ask your doctor about daily aspirin therapy * It is very important to talk with your doctor about all of the other medicines , antibiotics, vitamins or herbal products that you are taking * All of your medication must be approved by your doctor, including new medicines, as well as medicines you have taken before you started taking Warfarin Diet: * In order for Warfarin to work properly, it is important to keep your intake of Vitamin K as consistent as possible * You should avoid any sudden change in Vitamin K intake * Report any significant changes in your diet or weight to your doctor Call your Primary Care doctor if you experience any of the following: * Swelling or Pain in your leg * Sudden, continuous pain deep in a muscle * Pain that worsens when you are active or when you stand still for a long time * Chest Pain * Sudden Shortness of Breath * Rapid or pounding heart beat * Fainting * Dizziness * Cough with blood or bloody sputum * Sweating more than normal * Bruises * Heavy or uncontrolled bleeding * Blood in your urine, stool or vomit * Black or tarry stools Follow Up: It is important for you to keep your follow up appointments with your medical provider. Current Hospital Diet Patient's current hospital diet: Regular Diet Discharge Diet Recommended Diet: Regular Diet (with low cholesterol) Pending Studies Studies pending at discharge: yes List of pending studies: Hypercoagulable work up Keppra level Laboratory Results Hemoglobin A1c Test 04/18/17 14:30 Range/Units Estimated Average Glucose 97 mg/dl Hemoglobin A1c 5.0 4.5-5.6 % Lipid Panel Test 04/19/17 05:52 Range/Units Triglycerides Level 145 0-150 mg/dl Cholesterol Level 234 H 0-200 mg/dl HDL Cholesterol 91 mg/dl Cholesterol/HDL Ratio 2.6 LDL Cholesterol, Calculated 114 mg/dl Medical Emergencies . Who to Call and When: Medical Emergencies: If at any time you feel your situation is an emergency, please call 911 immediately. . Non-Emergent Contact Non-Emergency issues call your: Primary Care Provider, Neurologist Call Non-Emergent contact if: you have any medication questions . . "Provider Documentation" section prepared by Alistair Hernandez. . VTE Core Measure Inpt VTE Proph given/why not?: Enoxaparin (Lovenox)SQ, Warfarin (Coumadin) Signed: Signed: The status of this report is Draft * If report status is Draft, the document has not been finalized by the responsible provider. Additional Copies To Dolly LAGUERRE M.D.
--- NOTE | 2017-04-21 16:01 | Pharmacy Progress Note ---
Pharmacist Stroke Counseling Date of Service Apr 21, 2017. Scope Pharmacy has been consulted to provide medication discharge counseling for this patient admitted with ischemic stroke as per the Pharmacist Discharge Counseling for Stroke Patients Protocol. Medications on Discharge New Medications: Atorvastatin (Atorvastatin Calcium) 40 Mg Tab 80 MG PO HS for 30 Days, TAB Enoxaparin (Lovenox) 80 Mg/0.8 Ml Inj 70 MG SQ Q12H for 5 Days, #10 Warfarin Sod (Coumadin) 5 Mg Tab 5 MG PO DAILY@16 for 30 Days, TAB Continued Medications: Levetiracetam (Levetiracetam Er) 750 Mg Tab 4 TAB PO HS Patient noted that he had a previous stroke but it was nothing like this. He was on no meds prior to admission except antiseizure med. He will be on a Lovenox bridge until Coumadin is therapeutic. I emphasized the need for a consistent diet- he can eat green leafy vegetables but needs to keep the amount similar so warfarin dose can be adjusted. He expects to be going to an Anticoagulation Clinic. Action The above medications, specifically ones for stroke treatment/prophylaxis, have been reviewed in detail with the patient and family member prior to discharge. This includes indication, common adverse reactions, drug interactions, and medication administration. Medication counseling has been employed using the teach-back method to ensure understanding. Outcome The patient has demonstrated understanding of the medications. Please note, they are aware that the pharmacist will call them within 72 hours post-discharge to confirm that the appropriate medications are being taken and answer any further medication related questions the patient might have at that time. Contact information Individual to be contacted: Simba Santamaria Relationship to patient (if applicable): self Phone number: [phone] Best time to call: anytime Thank you for allowing pharmacy to be involved in the care of this patient. Please call [phone] or [phone] with any additional questions
--- NOTE | 2017-04-22 10:50 | Pharmacy Progress Note ---
Pharmacist Post D/C Phone Note Date of phone call: Apr 22, 2017. Individual with whom pharmacist spoke to: Patient The following questions were reviewed during the phone call with responses listed below each: Can you tell me the medications that you are currently taking as well as when and how you take each medication? - Medications Dose Route/Sig Max Daily Dose Days Date Category Atorvastatin Calcium (Atorvastatin) 40 Mg Tab 80 Mg PO HS 30 04/21/17 Rx Coumadin (Warfarin Sod) 5 Mg Tab 5 Mg PO DAILY@16 30 04/21/17 Rx Lovenox (Enoxaparin Sodium) 80 Mg/0.8 Ml Inj 70 Mg SQ Q12H 5 04/21/17 Rx Levetiracetam Er (Levetiracetam) 750 Mg Tab 4 Tab PO HS 04/18/17 Reported When have you missed any doses of your medications? - None. Got Rx filled at [facility] What side effects are you having from your medications? - None. No bruising, bleeding, or muscle aches What questions do you have about your medications? - None What problems are you having obtaining your medications? - There was an issue with Lovenox and [facility] but it was quickly sorted out and resolved. When is your next appointment with your primary care doctor? - Pt sees [facility] on Tuesday for INR check and follow up - Pt sees PCP Dr Lal on Tuesday As per the Pharmacist Discharge Counseling for Stroke Patients Protocol, this phone call has been completed within 72 hours of discharge. Thank you for allowing us to be involved in the care of this patient.
[2017-04-22 15:34] LABS: ANTITHROMBINIII ACTIVITY** 118 % activity (80-120); B2 GLYCOPROTEIN IGA <9 SAU (<=20); B2 GLYCOPROTEIN IGG <9 SGU (<=20); B2 GLYCOPROTEIN IGM <9 SMU (<=20); LUPUS ANTICOAGULANT** TC36573X Negative (Negative); PROTEIN C ACTIVITY** TC 1777X 94 % (70-180); PROTEIN S ACT(FUNCT)**1779X 130 % (70-150)
[2017-04-22] MEDS ORDERED: LEVE1TAB27 PO (16:56)
== END 2017-04-21 15:43 | disposition home or self-care (01) | DRG 65 ==
LOC: C.EDB 14:08 → C.2T 17:44 → ENRESERV 17:46
PROVIDERS: ADMIT Hospitalist; ATTEND Internal Medicine
DX: I63.8 Other cerebral infarction (principal); I69.354 Hemiplegia and hemiparesis following cerebral infarction affecting left non-dominant side; H53.47 Heteronymous bilateral field defects; G40.909 Epilepsy, unspecified, not intractable, without status epilepticus; Z86.73 Personal history of transient ischemic attack (TIA), and cerebral infarction without residual deficits

== ENCOUNTER 2017-04-22 14:57 | Emergency (ER) | payer OTHER ==
[~2017-04-22] VITALS: Ht 177.8 cm; Wt 72.8 kg
[~2017-04-22 14:57] MED LIST changes: +CMD5 PO; -LEVE750T PO; +LPT40 PO; +LVNIS80 SQ
[2017-04-22 15:03] VITALS: TEMP 36.7; Ht 177.8 cm; Wt 72.8 kg
[2017-04-22 16:33] LABS: INR 1.1 (0.9-1.1); PROTHROMBIN TIME (PATIENT) 11.4 SECONDS (9.0-12.0)
[2017-04-22] MEDS ORDERED: LEVE1TAB27 PO (16:56)
[2017-04-22 17:17] VITALS: BP 133/97; PULSE 67; O2SAT 95
--- NOTE | 2017-04-22 18:09 | EMERGENCY ROOM VISIT NOTE ---
History Report prepared by Nicole: Te Juarez Under the Supervision of: Dr. Romain Mcneal M.D. First contact with patient: 15:51 Chief Complaint: OTHER COMPLAINT Stated Complaint: BRUISING History of Present Illness The patient is a 41 year old male who presents to the Emergency Room with complaints of constant bilateral hand bruising beginning a few hours ago. He notes that he has a little bruising to his elbows as well. The patient was admitted as an inpatient four days ago for acute ischemic CVA. He was started on Heparin and Coumadin. He was discharged from the hospital yesterday on Lovenox and Coumadin. The patient denies any trauma, or injury. 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 Pt denies LOC, headache, fevers, chills, diaphoresis, visual changes, neck pain, chest pain, breathing difficulties, nausea, vomiting, abdominal pain, back pain, melena, hematochezia, urinary symptoms, numbness, weakness, lymphadenopathy, black or bloody stool, rash, or other complaints. Source of History: patient Onset: A few hours ago Position: hand (bilateral) Quality: other (bruising) Timing: constant Review of Systems See HPI for pertinent positives and negatives. A total of ten systems were reviewed and were otherwise negative. Past Medical & Surgical Medical Problems: (1) Convulsions (2) Hemiplegia, post-stroke (3) Left-sided weakness (4) Stroke (5) Stroke Surgical Problems: (1) Brain tumor (benign) (2) S/p brain tumor removal Family History FH: CAD (coronary artery disease) GRANDFATHER (multiple [place], first age 70, CABG) FH: cancer FATHER ( brain CA age 56) Social History Smoking Status: Never Smoker Drug Use: none Marital Status: single Housing Status: lives with family Occupation Status: employed Current/Historical Medications Scheduled Atorvastatin (Atorvastatin Calcium), 80 MG PO HS Enoxaparin (Lovenox), 70 MG SQ Q12H Levetiracetam (Levetiracetam Er), 3,000 MG PO QAM Warfarin Sod (Coumadin), 5 MG PO DAILY@16 Allergies Coded Allergies: No Known Allergies (Unverified , 05/22/13) Physical Exam Vital Signs Date Time Temp Pulse Resp B/P (MAP) Pulse Ox O2 Delivery O2 Flow Rate FiO2 04/22/17 17:17 67 133/97 95 04/22/17 15:03 36.7 63 16 133/89 100 Room Air Physical Exam GENERAL: Awake, alert, well-appearing, in no distress HENT: Normocephalic, atraumatic. Oropharynx unremarkable. EYES: Normal conjunctiva. Sclera non-icteric. NECK: Supple. No nuchal rigidity. FROM. No JVD. RESPIRATORY: Clear to auscultation. CARDIAC: Regular rate, normal rhythm. Extremities warm and well perfused. Pulses equal. MUSCULOSKELETAL: Chest examination reveals no tenderness. The back is symmetrical on inspection without obvious abnormality. There is no CVA tenderness to palpation. No joint edema. EXTREMITIES: Calves are equal size bilaterally and non-tender. No edema. No discoloration. Bruising over the second and third metacarpals. Contracture of the LUE. NEURO: Normal sensorium. No sensory or motor deficits noted. SKIN: No rash or jaundice noted. Medical Decision & Procedures Laboratory Results Test 04/22/17 16:10 Prothrombin Time 11.4 SECONDS (9.0-12.0) Prothromb Time International Ratio 1.1 (0.9-1.1) Laboratory results reviewed by ne ED Course 1555: The patient was evaluated in room A12B. A complete history and physical exam was performed. 1650: I reevaluated the patient. Discussed results and discharge instructions: he verbalized understanding and agreement. The patient is ready for discharge. Medical Decision The patient was evaluated. He complained of bruising. Differential includes trauma, venipuncture consultation, infection, coagulopathy, as well as others. Physical examination reveals a small bruise at the site of the venipuncture. The patient is on Lovenox and Coumadin. He is due for an INR check tomorrow. This was done today. His INR was only 1.1. The patient is still on her buttocks. He has a follow-up appointment beginning of next week with his primary physician. After discussion with the pharmacy the patient will increase his Coumadin dose to 10 mg tonight and then resume 5 mg daily Will continue the Lovenox. He will need to have his INR rechecked next week. The patient feels comfortable. He will use warm compresses for the bruising. Return instructions were outlined. The patient and significant other feel very comfortable. I gave my usual and customary discussion regarding this issue. By the evaluation outlined above other emergent etiologies such as those listed in the differential, as well as others, were deemed relatively unlikely. The patient was educated about the findings as listed above. All questions were answered and the patient was pleased with the treatment. Return instructions were outlined and the patient was discharged in stable condition. The patient was referred to his PCP for follow-up for a recheck of the current condition. Impression Primary Impression: Ecchymosis Additional Impression: Anticoagulated Scribe Attestation The scribe's documentation has been prepared under my direction and personally reviewed by me in its entirety. I confirm that the note above accurately reflects all work, treatment, procedures, and medical decision making performed by me. Departure Information Dispostion Home / Self-Care Referrals No Doctor, Assigned (PCP) Forms HOME CARE DOCUMENTATION FORM, IMPORTANT VISIT INFORMATION, WORK / SCHOOL INSTRUCTIONS Patient Instructions My [facility] Additional Instructions Your INR is 1.1. Take 10 mg of Coumadin this evening and then resume normal dosing. Continue the Lovenox. Warm compresses for 20 minutes at a time four times daily for 2-3 days. Elevate the left hand. Return to the Emergency Room for any redness, fever, puslike drainage, severe pain, bleeding issues, or as needed. Follow up with your primary physician as scheduled. Problem Qualifiers
== END 2017-04-22 17:10 | disposition home or self-care (01) ==
LOC: C.EDB 14:59 → C.EDA 17:10
DX: R23.3 Spontaneous ecchymoses (principal); I69.359 Hemiplegia and hemiparesis following cerebral infarction affecting unspecified side; Z98.890 Other specified postprocedural states; Z82.49 Family history of ischemic heart disease and other diseases of the circulatory system; Z80.8 Family history of malignant neoplasm of other organs or systems; Z79.01 Long term (current) use of anticoagulants

== ENCOUNTER → 2017-07-19 | Outpatient (CLI) | payer BC ==
[~2017-07-19] MED LIST changes: +LEVE1TAB27 PO; +OPTIRAY 320 IV PRN
--- NOTE | 2017-07-19 10:56 | DIAGNOSTIC IMAGING REPORT ---
CT NECK ANGIO WITH CONTRAST CLINICAL HISTORY: Ischemic stroke. Left vertebral artery dissection. 3 month follow-up examination. COMPARISON STUDY: 04/19/2017 TECHNIQUE: CT angiography was performed from the aortic arch to the skull base. MIP imaging was performed. The patient was scanned in a dynamic helical fashion during intravenous administration of 94 cc of Optiray 320. A dose lowering technique was utilized adhering to the principles of ALARA. CT DOSE: 567.45 mGy.cm Technique: CT angiogram of the carotid and vertebral arteries was obtained using intravenous contrast and 3-D reconstruction. NASCET criteria was utilized. Findings: There is a partially visualized cystic lesion within the right middle cranial fossa. The right carotid revealed no evidence of aneurysm and no evidence of dissection. There is no evidence of hemodynamic significant stenosis. The left carotid revealed no evidence of hemodynamic significant stenosis. There is no evidence of aneurysm. There is no evidence of dissection. The right vertebral artery appears normal. There is slight flattening of the left vertebral artery at the C7 level. This may represent a mild residua of the previously identified dissection. The left vertebral appears otherwise normal. IMPRESSION: 1. No evidence of hemodynamically significant carotid stenosis 2. The left vertebral artery has reverted to a normal appearance with the exception of very slight flattening of the artery at the C7 level. 3. The right vertebral artery appears normal 4. Partially visualized cystic lesion within the right middle cranial fossa. This has been reported on studies dating back to 2013. Electronically signed by: Howard Ibarra M.D. 07/19/2017 10:55 AM Dictated Date/Time: 07/19/2017 10:48 AM
== END | disposition home or self-care (01) ==
LOC: C.CTS 09:39
PROVIDERS: ATTEND Psychiatry & Neurology Neurology
DX: I65.02 Occlusion and stenosis of left vertebral artery (principal)